=== PATIENT | male | born 1965 | race Caucasian/White ===

== ENCOUNTER 2020-01-25 14:02 | Outpatient (RCR) | payer MEDICAID, SELFPAY | END 2020-02-03 23:59 | disposition home or self-care (01) | LOC: SPT 14:02 | PROVIDERS: Family Provider Family Medicine; PCP Family Medicine; Referring Provider Specialist; Visit Provider Specialist | DX: G89.29 Other chronic pain (principal); M54.2 Cervicalgia; M79.601 Pain in right arm; M79.602 Pain in left arm | CPT/HCPCS: 97110; 97161 ==

== ENCOUNTER 2020-02-04 06:00 | Outpatient (RCR) | payer MEDICAID, SELFPAY | END 2020-03-05 23:59 | disposition home or self-care (01) | LOC: SPT 06:00 | PROVIDERS: PCP Family Medicine; Referring Provider Specialist; Visit Provider Specialist | DX: G89.29 Other chronic pain (principal); M54.2 Cervicalgia; M79.601 Pain in right arm; M79.602 Pain in left arm | CPT/HCPCS: 97110 ==

== ENCOUNTER → 2020-05-29 10:34 | Outpatient (BNVA) | payer MEDICAID, SELFPAY | PROVIDERS: PCP Family Medicine; Visit Provider Licensed Practical Nurse | DX: Z98.1 Arthrodesis status (principal); M50.13 Cervical disc disorder with radiculopathy, cervicothoracic region; M79.641 Pain in right hand; M79.642 Pain in left hand; F17.210 Nicotine dependence, cigarettes, uncomplicated | CPT/HCPCS: 99213 ==

== ENCOUNTER 2020-06-09 10:51 | Outpatient (CLI) | payer MEDICAID, SELFPAY ==
--- NOTE | 2020-06-09 11:00 | CT_ITS ---
WS: [id number] CT CERVICAL SPINE TECHNIQUE: Noncontrast CT of the cervical spine with coronal and sagittal reformatted images. CLINICAL INFORMATION: Exacerbation of neck pain COMPARISON: DLP: 1240.[address] scans at [facility] use at least one of these dose optimization techniques: automat ed exposure control; mA and/or kV adjustment per patient size (includes targeted exams where dose is matched to clinical indication); or iterative reconstruction. FINDINGS: Straightening of the normal cervical lordosis. Postoperative changes posterior cervical fusion C2- C6 . Hardware appears intact. Segmentation anomaly C2-3. Alignment is unchanged from previous. Hardware appears stable. C2-C3: Congenital segmentation anomaly. Mild left and no significant right foraminal narrowing. C3-C4: Decompressive laminectomy defects. Mild to moderate bilateral bony foraminal narrowing. Spinal canal is patent. C4-C5: Disc osteophytic ridging. Moderate right greater than left bony foraminal narrowing. Spinal ca nal is patent. Moderate facet arthropathy. C5-C6: Right pericentral disc osteophyte protrusion. Mild central canal stenosis. Slight contact of t he cervical cord. Moderate right greater than left bony foraminal narrowing. Moderate facet arthropat hy. Laminectomy defects. C6-C7: Disc osteophyte ridging. Tiny right pericentral protrusion. Mild central canal stenosis. Moder ate right and mild to moderate left bony foraminal narrowing. C7-T1: Disc osteophytic ridging. Tiny central protrusion. Spinal canal is patent. Mild bilateral fora marian narrowing. Overall no significant changes since . . CT/CT cervical spin wo con* [id number] IMPRESSION: 1. Straightening of the normal cervical lordosis with dorsal justina and screw fix ation C2-C6 with decompressive laminectomy defects stable from previous. 2. Dorsal fixation hardware is intact. No evidence of hardware loosening. 3. Small right pericentral disc osteophyte protrusion C6-C7 with mild central canal stenosis and slight contact of the right cervical cord unchanged. Moderat e right C6-C7 bony foraminal narrowing. 4. Tiny central protrusion C7-T1 with slight effacement of the ventral thecal sac unchanged. Moderate bony foraminal narrowing worse at right C4-C5, right C5 -C6, and right C6-C7.
== END 2020-06-09 10:52 | disposition home or self-care (01) ==
PROVIDERS: PCP Family Medicine; Visit Provider Licensed Practical Nurse
DX: M50.23 Other cervical disc displacement, cervicothoracic region (principal); M25.78 Osteophyte, vertebrae
CPT/HCPCS: 72125

== ENCOUNTER → 2020-06-20 13:30 | Outpatient (BNVA) | payer MEDICAID, SELFPAY | PROVIDERS: PCP Family Medicine; Visit Provider Licensed Practical Nurse | DX: M50.13 Cervical disc disorder with radiculopathy, cervicothoracic region (principal); Z98.1 Arthrodesis status; M79.641 Pain in right hand; M79.642 Pain in left hand; F17.210 Nicotine dependence, cigarettes, uncomplicated | CPT/HCPCS: 99213 ==

== ENCOUNTER → 2021-05-09 13:35 | Outpatient (BNVA) | payer MEDICAID, SELFPAY | PROVIDERS: PCP Family Medicine; Visit Provider Specialist | DX: M43.6 Torticollis (principal); M54.2 Cervicalgia; R20.0 Anesthesia of skin; R20.2 Paresthesia of skin; M79.643 Pain in unspecified hand; Z98.890 Other specified postprocedural states; Z71.89 Other specified counseling; F17.200 Nicotine dependence, unspecified, uncomplicated | CPT/HCPCS: 99214; 99215 ==

== ENCOUNTER → 2021-05-24 14:23 | Outpatient (BNVA) | payer MEDICAID, SELFPAY | PROVIDERS: PCP Family Medicine; Visit Provider Specialist | DX: G24.3 Spasmodic torticollis (principal); M50.13 Cervical disc disorder with radiculopathy, cervicothoracic region; R29.898 Other symptoms and signs involving the musculoskeletal system; Z71.89 Other specified counseling; F17.200 Nicotine dependence, unspecified, uncomplicated | CPT/HCPCS: 64616; 99214; J0585 ==

== ENCOUNTER 2021-05-31 12:45 | Outpatient (CLI) | payer MEDICAID, SELFPAY ==
--- NOTE | 2021-05-31 13:00 | XR_ITS ---
WS: [id number] Exam: XR hand RT min 3V* [id number] Date/Time of Exam: 05/31/2021 12:53 PM Reason For Exam: M79.643 - Pain in unspecified hand No acute fracture or dislocation. There is degenerative change at the MP joint of the third finger. S ubcortical cyst formation in the head of the third metacarpal and the base of the proximal phalanx of the third finger. Also subcortical cyst formation in several carpal bones. No soft tissue foreign vick dies. XR/XR hand RT min 3V* [id number] IMPRESSION: 1. Degenerative change at the MP joint of the third finger as well as the sever al carpal bones. See above discussion. 2. No fracture or dislocation.
--- NOTE | 2021-05-31 13:15 | XR_ITS ---
WS: [id number] Exam: XR hand LT min 3V* [id number] Date/Time of Exam: 05/31/2021 12:53 PM Reason For Exam: M79.643 - Pain in unspecified hand No acute fracture or dislocation. There is moderately advanced degenerative change at the MP joint of the third finger. Extensive subcortical cyst formation in the head of the third metacarpal and the b ase of the proximal phalanx of the third finger. There may be early osteonecrosis of the head of the third metacarpal. Osteophyte formation along the head of the third metacarpal. There are subcortical cysts noted in the lunate and scaphoid as well as the capitate. Mild degenerative change at the CMC j oint of the thumb. No soft tissue foreign bodies. XR/XR hand LT min 3V* [id number] IMPRESSION: 1. Advanced degenerative change at the MP joint of the third finger. There may be early osteonecrosis of the head of the third metacarpal. 2. Additional degenerative changes of the hand and wrist as noted above. 3. No acute fracture.
== END 2021-05-31 12:46 | disposition home or self-care (01) ==
PROVIDERS: PCP Family Medicine; Visit Provider Specialist
DX: M79.642 Pain in left hand (principal); M79.641 Pain in right hand
CPT/HCPCS: 73130

== ENCOUNTER → 2021-06-12 11:42 | Outpatient (BNVA) | payer MEDICAID, SELFPAY | PROVIDERS: PCP Family Medicine; Visit Provider Specialist | DX: G56.03 Carpal tunnel syndrome, bilateral upper limbs (principal); G56.21 Lesion of ulnar nerve, right upper limb; F17.200 Nicotine dependence, unspecified, uncomplicated | CPT/HCPCS: 95910 ==

== ENCOUNTER → 2021-08-16 09:42 | Outpatient (BNVA) | payer MEDICAID, SELFPAY | PROVIDERS: PCP Family Medicine; Visit Provider Family Medicine | DX: Z20.822 Contact with and (suspected) exposure to COVID-19 (principal); R68.89 Other general symptoms and signs | CPT/HCPCS: 80053; 85025; 87400; 87635 ==

== ENCOUNTER → 2021-09-27 13:39 | Outpatient (BNVA) | payer MEDICAID, SELFPAY | PROVIDERS: PCP Family Medicine; Visit Provider Specialist | DX: G24.3 Spasmodic torticollis (principal) | CPT/HCPCS: 64616; J0585 ==

== ENCOUNTER → 2021-10-16 08:34 | Outpatient (BNVA) | payer MEDICAID, SELFPAY | PROVIDERS: PCP Family Medicine; Visit Provider Internal Medicine Rheumatology | DX: M15.9 Polyosteoarthritis, unspecified (principal); Z79.899 Other long term (current) drug therapy; Z11.59 Encounter for screening for other viral diseases; Z11.1 Encounter for screening for respiratory tuberculosis; G56.21 Lesion of ulnar nerve, right upper limb; G56.03 Carpal tunnel syndrome, bilateral upper limbs; G24.3 Spasmodic torticollis; Z71.85 Encounter for immunization safety counseling; F17.210 Nicotine dependence, cigarettes, uncomplicated; F17.290 Nicotine dependence, other tobacco product, uncomplicated | CPT/HCPCS: 99204 ==

== ENCOUNTER 2021-10-16 11:46 | Outpatient (CLI) | payer MEDICAID, SELFPAY ==
[2021-10-16 12:54] LABS: Erythrocyte Sedimentation Rate 4 mm/hr (0-10)
[2021-10-16 13:14] LABS: C Reactive Protein 0.8 mg/L (0.0-4.9); Ferritin 129 ng/mL (30-400); Iron 58 ug/dL (59-158); Percent Saturation 21.4 % (20-50); Total Iron Binding Capacity 270 mcg/dl; Unsaturated Iron Binding 212 ug/dL (112-347)
[2021-10-16 13:30] LABS: 25 Hydroxy Vitamin D 11 ng/mL (30-100)
[2021-10-16 14:10] LABS: Hepatitis B Core AB, Total Non-Reactive (Nonreactive); Hepatitis C Virus Antibody Non-Reactive (Nonreactive)
[2021-10-16 14:31] LABS: Hepatitis B Surface Antigen Non-Reactive (Nonreactive)
[2021-10-18 13:47] LABS: Quantiferon Mitogen >10.00 IU/mL; Quantiferon Nil 0.02 IU/mL; Quantiferon TB Gold NEGATIVE (NEGATIVE)
[2021-10-18 14:02] LABS: Cyclic Citrullinated Peptide <16 UNITS
[2021-10-18 15:47] LABS: Anti-Nuclear Antibody Screen NEGATIVE (NEGATIVE)
== END 2021-10-16 11:47 | disposition home or self-care (01) ==
LOC: LAB 11:51
PROVIDERS: PCP Family Medicine; Visit Provider Internal Medicine Rheumatology
DX: M19.90 Unspecified osteoarthritis, unspecified site (principal); Z79.899 Other long term (current) drug therapy; Z11.59 Encounter for screening for other viral diseases; G61.9 Inflammatory polyneuropathy, unspecified; Z11.1 Encounter for screening for respiratory tuberculosis
CPT/HCPCS: 82306; 82728; 83540; 83550; 85651; 86038; 86140; 86200; 86431; 86480; 86704; 86803; 87340

== ENCOUNTER → 2022-01-10 12:50 | Outpatient (BNVA) | payer MEDICAID, SELFPAY | PROVIDERS: PCP Family Medicine; Visit Provider Specialist | DX: F41.1 Generalized anxiety disorder (principal); F40.231 Fear of injections and transfusions; F17.210 Nicotine dependence, cigarettes, uncomplicated; F17.290 Nicotine dependence, other tobacco product, uncomplicated; G24.3 Spasmodic torticollis | CPT/HCPCS: 64616; J0585 ==

== ENCOUNTER → 2022-01-25 09:59 | Outpatient (BNVA) | payer MEDICAID, SELFPAY | PROVIDERS: PCP Family Medicine; Visit Provider Internal Medicine Rheumatology | DX: M06.041 Rheumatoid arthritis without rheumatoid factor, right hand (principal); M06.042 Rheumatoid arthritis without rheumatoid factor, left hand; M11.20 Other chondrocalcinosis, unspecified site; Z79.899 Other long term (current) drug therapy; Z71.85 Encounter for immunization safety counseling | CPT/HCPCS: 99214 ==

== ENCOUNTER → 2022-04-04 13:06 | Outpatient (BNVA) | payer MEDICAID, SELFPAY | PROVIDERS: PCP Family Medicine; Visit Provider Specialist | DX: F41.1 Generalized anxiety disorder (principal); Z98.1 Arthrodesis status; G24.3 Spasmodic torticollis | CPT/HCPCS: 64616; J0585 ==

== ENCOUNTER → 2022-05-21 10:41 | Outpatient (BNVA) | payer MEDICAID, SELFPAY | PROVIDERS: PCP Family Medicine; Visit Provider Internal Medicine Rheumatology | DX: M06.041 Rheumatoid arthritis without rheumatoid factor, right hand (principal); M06.042 Rheumatoid arthritis without rheumatoid factor, left hand; Z79.899 Other long term (current) drug therapy; Z71.85 Encounter for immunization safety counseling; G56.03 Carpal tunnel syndrome, bilateral upper limbs; G56.21 Lesion of ulnar nerve, right upper limb | CPT/HCPCS: 36415; 80076; 82565; 85025; 86140; 99214 ==

== ENCOUNTER 2022-06-17 19:04 | Emergency (ER) | payer MEDICAID, SELFPAY ==
--- NOTE | 2022-06-17 19:07 | XRR_ITS ---
PROCEDURE INFORMATION: Exam: XR Right Foot Exam date and time: 06/17/2022 8:00 PM Age: 57 years old Clinical indication: Difficulty in walking and swelling, leg or foot and other: Possible spider bite; Additional info: Injury TECHNIQUE: Imaging protocol: Radiologic exam of the Right foot. Views: 3 or more views. COMPARISON: No relevant prior studies available. FINDINGS: Bones/joints: No acute or aggressive osseous lesion. Soft tissues: Apparent soft tissue swelling dorsal forefoot. No foreign body identified. XR/XR foot RT min 3V* [id number] IMPRESSION: Apparent soft tissue swelling of the dorsal forefoot. Correlate clinically.
[2022-06-17 19:11] VITALS: BP 95/57; PULSE 120; RESP 18; TEMP 36.7; O2SAT 97; BMI 19.1
[2022-06-17 19:35] VITALS: RESP 16
[2022-06-17] MEDS: ondansetron 2 mg/ML SDV 2 mL 4 MG IVP (19:35)
[2022-06-17] MEDS: fentaNYL 50 mcg/mL INJ 2mL IVP (19:35)
[2022-06-17 19:53] LABS: Basophils % 0.3 %; Eosinophils # 0.2 10^3/uL (0.0-0.8); Eosinophils % 1.5 %; Hematocrit 44.5 % (42.0-52.0); Hemoglobin 14.4 g/dL (11.7-16.6); Lymphocytes # 1.2 10^3/uL (0.8-4.8); Mean Corpuscular HGB Conc 32.4 g/dL (30.0-36.0); Mean Corpuscular Hemoglobin 30.2 pg (28.0-34.0); Mean Corpuscular Volume 93.3 fl (80-94); Mean Platelet Volume 9.1 fL (7.4-10.4); Monocytes % 8.6 %; Neutrophils # 8.61 10^3/uL (1.8-7.7); Neutrophils % 78.2 %; Nucleated Red Blood Cells % 0 %; Platelet Count 387 10^3/cmm (130-400); Red Blood Count 4.77 10^6/uL (4.1-5.3); Red Cell Distribution Width 12.7 % (12.1-15.1)
[2022-06-17 20:09] LABS: Lactate (Lactic Acid level) 2.4 mmol/L (0.5-2.2)
[2022-06-17 20:14] LABS: Alanine Aminotransferase 11 U/L (0-41); Albumin Level 3.9 g/dL (3.5-5.2); Alkaline Phosphatase 106 U/L (40-130); Aspartate Amino Transferase 15 U/L (0-40); Blood Urea Nitrogen 13 mg/dL (6-20); Calcium 9.1 mg/dL (8.5-10.5); Carbon Dioxide 26 mmol/L (22-29); Chloride 101 mmol/L (98-107); Globulin 2.8 g/dL (1.3-4.6); Glucose 124 mg/dL (65-115); Osmolality Calculated 288 mOsm/kg (285-295); Sodium 138 mmol/L (136-145); Total Bilirubin 0.3 mg/dL (0.15-1.2); Total Protein 6.7 g/dL (6.6-8.7)
[2022-06-17 20:15] LABS: Anion Gap 14.9 (5-19); Potassium 3.9 mmol/L (3.5-5.1)
--- NOTE | 2022-06-17 20:22 | W.ED.WOUNDLC ---
HPI - Wound/Laceration General: Chief Complaint: Wound/Laceration Stated Complaint: Right foot injury Time Seen by Provider: 06/17/22 20:17 History of Present Illness: 57-year-old male patient comes in today with a wound to the dorsal right foot. It is at the area of the base of the fourth toe. Patient believes it started as an insect bite over the last 2 to 3 days as it got more red and swollen. Patient denies diabetes. Patient does have chronic numbness and tingling to his feet. Patient does have a history of rheumatoid arthritis. Review of Systems Musc: Reports: extremity pain and extremity swelling Skin/Breast: Reports: new lesions PFSH ED PFSH: Medical History Bilateral hand pain Calcium pyrophosphate deposition disease (CPPD) Cervical disc disorder with radiculopathy, cervicothoracic region Generalized anxiety disorder High risk medication use Immunization counseling Inflammatory arthritis Peripheral neuropathy Seronegative rheumatoid arthritis of both hands Surgical History History of carpal tunnel release Open release of the median nerve at the right wrist, 08/23/2019, [facility] History of fusion of cervical spine C2-C3 ACDFF, [facility], 03/09/2001; C2-C6 posterior fusion/fixation, [facility], 04/01/2014 Family History Father Stroke Denies family history of Rheumatoid arthritis Diabetes Lupus Lung disease Cancer Hypertension Social History Smoking and tobacco status: current every day smoker cigarettes [ Other cigarette details: using chantix to try to quit at this time] and cigars Quit status (tobacco): has tried quititng Alcohol intake: current Alcohol intake frequency: few times a week Household members: none Marital status: Current occupational status: disabled History of recent travel: No Physical Exam Neck/C-Spine: COMMON NORMALS: full ROM Resp: COMMON NORMALS: normal respiratory effort and clear to auscultation bilaterally AUSCULTATION: clear to auscultation bilaterally Extremity: RIGHT LOWER EXTREMITY: Yes foot & digits (Draining wound to the dorsal foot at the base of the fourth digit.) Skin: NARRATIVE SKIN EXAM: Patient has a draining wound to the right foot with redness surrounding the wound. WOUNDS: Yes wounds noted drainage Course Vital Signs: Vital signs: Vital Signs Temperature 98.1 F 06/17/22 19:11 Pulse Rate 120 H 06/17/22 19:11 Respiratory Rate 18 06/17/22 19:11 Blood Pressure 95/57 06/17/22 19:11 Pulse Oximetry 97 06/17/22 19:11 Oxygen Delivery Me thod 06/17/22 19:11 MDM - Wound/Laceration Medical Decision Making Patient comes in with open draining wound with redness and swelling to the right foot. On exam we note a wound at the base of the fourth digit on the right foot. There is purulent drainage from the site. Patient also has surrounding erythema. Pulses are intact to the foot, both pedal and tibial pulses are palpated. Patient denies diabetes but does have a history of neuropathy. Differential diagnosis includes osteomyelitis, abscess, cellulitis, infected wound. X-ray notes some soft tissue swelling but no osteomyelitis or foreign body. CBC was a white blood cell count at 11,000. CMP was unremarkable. Lactate was 2.2. Reviewed exam with Dr. Fortune who recommended antibiotics and follow-up with podiatry. Case management was requested to assist with the podiatry follow-up. Reviewed plan with patient who agreed. Patient was given 750 mg of Levaquin x1 in the ER per ID. Patient will continue on oral antibiotics at home. Lab Data : 06/17/22 19:41 06/17/22 19:41 Radiology Impressions Foot X-Ray 06/17/22 19:07 IMPRESSION: Apparent soft tissue swelling of the dorsal forefoot. Correlate clinically. Laboratory Results WBC 11.0 10^3/uL (4.0-10.0) H 06/17/22 19:41 RBC 4.77 10^6/uL (4.1-5.3) 06/17/22 19:41 Hgb 14.4 g/dL (11.7-16.6) 06/17/22 19:41 Hct 44.5 % (42.0-52.0) 06/17/22 19:41 MCV 93.3 fl (80-94) 06/17/22 19:41 MCH 30.2 pg (28.0-34.0) 06/17/22 19:41 MCHC 32.4 g/dL (30.0-36.0) 06/17/22 19:41 RDW 12.7 % (12.1-15.1) 06/17/22 19:41 Plt Count 387 10^3/cmm (130-400) 06/17/22 19:41 MPV 9.1 fL (7.4-10.4) 06/17/22 19:41 Neut % (Auto) 78.2 % 06/17/22 19:41 Lymph % (Auto) 11.0 % 06/17/22 19:41 [place] % (Auto) 8.6 % 06/17/22 19:41 Eos % (Auto) 1.5 % 06/17/22 19:41 Baso % (Auto) 0.3 % 06/17/22 19:41 Neut # (Auto) 8.61 10^3/uL (1.8-7.7) H 06/17/22 19:41 Lymph # (Auto) 1.2 10^3/uL (0.8-4.8) 06/17/22 19:41 [place] # (Auto) 1.0 10^3/uL (0.2-0.9) H 06/17/22 19:41 Eos # (Auto) 0.2 10^3/uL (0.0-0.8) 06/17/22 19:41 Baso # (Auto) 0.0 10^3/uL (0.0-0.1) 06/17/22 19:41 Nucleated RBC % (auto) 0 % 06/17/22 19:41 Nucleated RBCs # 0.0 /100WBC 06/17/22 19:41 Sodium 138 mmol/L (136-145) 06/17/22 19:41 Potassium 3.9 mmol/L (3.5-5.1) 06/17/22 19:41 Chloride 101 mmol/L (98-107) 06/17/22 19:41 Carbon Dioxide 26 mmol/L (22-29) 06/17/22 19:41 Anion Gap 14.9 (5-19) 06/17/22 19:41 BUN 13 mg/dL (6-20) 06/17/22 19:41 Creatinine 0.8 mg/dL (0.7-1.2) 06/17/22 19:41 GFR Calculation 100.0 mL/min (90-130) 06/17/22 19:41 Glucose 124 mg/dL (65-115) H 06/17/22 19:41 Calculated Osmolality 288 mOsm/kg (285-295) 06/17/22 19:41 Lactate 2.4 mmol/L (0.5-2.2) H 06/17/22 19:41 Calcium 9.1 mg/dL (8.5-10.5) 06/17/22 19:41 Total Bilirubin 0.3 mg/dL (0.15-1.2) 06/17/22 19:41 AST 15 U/L (0-40) 06/17/22 19:41 ALT 11 U/L (0-41) 06/17/22 19:41 Alkaline Phosphatase 106 U/L (40-130) 06/17/22 19:41 Total Protein 6.7 g/dL (6.6-8.7) 06/17/22 19:41 Albumin 3.9 g/dL (3.5-5.2) 06/17/22 19:41 Globulin 2.8 g/dL (1.3-4.6) 06/17/22 19:41 Discharge Plan Discharge Patient Disposition: Home Clinical Impression: Infected wound of left foot due to nonvenomous insect bite Condition: Stable Prescriptions: New levofloxacin 500 mg tablet 500 mg PO DAILY 10 Days Qty: 10 0RF No Action folic acid 1 mg tablet 1 mg PO DAILY Qty: 90 3RF hydrocodone-acetaminophen 10-325 mg tablet 1 tab PO BID PRN (Reason: pain) 30 Days Qty: 60 0RF leflunomide 20 mg tablet 20 mg PO DAILY Qty: 30 3RF ergocalciferol (vitamin D2) [Vitamin D2] 1,250 mcg (50,000 unit) capsule 1,250 mcg PO DAILY Qty: 15 0RF ibuprofen 600 mg tablet See Rx Instructions .ROUTE .COMPLEX Qty: 75 7RF Dose Instruction: TAKE 1 TABLET BY MOUTH THREE TIMES DAILY NEEDED FOR PAIN Rx Instructions: TAKE 1 TABLET BY MOUTH THREE TIMES DAILY NEEDED FOR PAIN gabapentin 300 mg capsule See Rx Instructions .ROUTE .COMPLEX Qty: 60 6RF Dose Instruction: TAKE 1 CAPSULE BY MOUTH TWO TIMES DAILY FOR 30 DAYS FOR CHRONIC NERVE PAIN Rx Instructions: TAKE 1 CAPSULE BY MOUTH TWO TIMES DAILY FOR 30 DAYS FOR CHRONIC NERVE PAIN omeprazole 40 mg capsule,delayed release(DR/EC) See Rx Instructions .ROUTE .COMPLEX Qty: 90 1RF Dose Instruction: TAKE 1 CAPSULE BY MOUTH EVERY DAY ON EMPTY STOMACH 30 MINUTES BEFORE BREAKFAST Rx Instructions: TAKE 1 CAPSULE BY MOUTH EVERY DAY ON EMPTY STOMACH 30 MINUTES BEFORE BREAKFAST diazepam 5 mg tablet 5 mg PO TID PRN (Reason: anxiety) 30 Days Qty: 65 4RF Discharge Orders: Discharge ED (Routine); Ordered 06/17/22 Ordered By: Aravind Calzada Referrals: Colby Sen MD [Primary Care Provider] - Discharge Diet: Usual diet Discharge Activity: Increase activity as tolerated Patient Instructions: Wound Infection (ED) Activity Restrictions/Additional Instructions: Clean twice a day with mild soap and water. Elevate foot is much as possible. Take antibiotics as directed. Case management will contact you regarding follow-up appointment with podiatry for further treatment and evaluation. Return to ER for high fever greater than 100.4, nausea vomiting, inability to hold fluids down, or new concerns. Coding Level of Care Code ED Personal Care Assistant for Chg Fwd Exam Expanded Problem Focused
[2022-06-17] MEDS: levoFLOXacin 500 mg Tablet PO (21:07)
[2022-06-17 21:13] VITALS: PULSE 90; RESP 17; O2SAT 97
--- NOTE | 2022-06-18 09:50 | DCPLANNER ---
Addendum entered by Елена Stanley 06/28/22 08:38: Patient had an appointment with ortho - patient did attend appointment. Addendum entered by Елена Stanley 06/19/22 15:27: Patient has a follow up appointment for patient with ortho for , June 20, 2022 at 9:[address] Delcid at ortho. Clinic will call patient with appointment information. Original Note: consulting services manager had message to schedule a follow up appointment for patient with ortho. consulting services manager sent patients information to the front office staff at ortho. Patients information will be printed and reviewed. Clinic will call patient with appointment information.
== END 2022-06-17 20:45 | disposition home or self-care (01) ==
PROVIDERS: Emergency Medicine; Emergency Provider Nurse Practitioner Family; PCP Family Medicine
DX: S90.862A Insect bite (nonvenomous), left foot, initial encounter (principal); L08.9 Local infection of the skin and subcutaneous tissue, unspecified; W57.XXXA Bitten or stung by nonvenomous insect and other nonvenomous arthropods, initial encounter; F17.210 Nicotine dependence, cigarettes, uncomplicated
CPT/HCPCS: 73630; 80053; 83605; 85025; 87040; 96374; 96375; 99284; J2405; J3010

== ENCOUNTER → 2022-06-20 09:57 | Outpatient (BNVA) | payer MEDICAID, SELFPAY | PROVIDERS: PCP Family Medicine; Referring Provider Nurse Practitioner Family; Visit Provider Podiatrist Foot & Ankle Surgery | DX: M00.9 Pyogenic arthritis, unspecified (principal); L03.115 Cellulitis of right lower limb; L97.511 Non-pressure chronic ulcer of other part of right foot limited to breakdown of skin; W57.XXXA Bitten or stung by nonvenomous insect and other nonvenomous arthropods, initial encounter | CPT/HCPCS: 73630; 99204; 99205 ==

== ENCOUNTER 2022-06-20 13:55 | Inpatient (IN) | payer MEDICAID, SELFPAY ==
[2022-06-20] VITALS (7 sets, daily range): BP systolic 94–149; BP diastolic 61–89; PULSE 81–117; RESP 16–18; TEMP 36.5–36.6; O2SAT 96–99; BMI 19.8; BMI 20.3
--- NOTE | 2022-06-20 14:12 | W.ED.SKABFB ---
HPI - Skin/Abscess/Foreign Bdy General: Chief complaint: Skin/Abscess/Foreign Body Stated complaint: Right foot spider bite Time Seen by Provider: 06/20/22 14:05 History of Present Illness: Patient is a 57-year-old male that comes to the ED with a wound on right foot. Patient has been seen here in the ED back on June 17 for same complaint. His wound has not improved on outpatient oral antibiotic treatment. He endorses having red streaking at the top of his right foot and his ankle. Increased drainage from the wound. He rates his pain currently a 5 out of 10. Denies any fevers. He saw Dr. Delcid the sales agent [employer] today June 20 and was sent here to the ED to be admitted. Dr. Delcid is going to take patient to the OR tomorrow and Dr. Delcid contacted the hospitalist Dr. Dee and told her about patient case and she agreed to have patient admitted. Associated symptoms: Deny chills, fever(s), nausea or vomiting Review of Systems Const: Denies: fever(s), chills or fatigue Eyes: Denies: change in vision or eye discomfort ENMT: Denies: throat pain, odynophagia, nasal discharge or nasal congestion Card: Denies: chest pain, palpitations, edema, swelling of feet/ankles, dyspnea on exertion or orthopnea Resp: Denies: dyspnea, productive cough or non-productive cough GI: Denies: abdominal pain, nausea, vomiting, diarrhea, constipation or hematochezia : Denies: flank pain, difficulty urinating, dysuria or hematuria Musc: Reports: extremity pain (Right foot) and extremity swelling (Right foot); Denies: neck pain or back pain Skin/Breast: Reports: new lesions (Worsening wound on right fourth toe.); Denies: rash Neuro: Denies: headache(s), numbness in extremities or weakness in extremities [facility] ED PFSH: Medical History Bilateral hand pain Calcium pyrophosphate deposition disease (CPPD) Cervical disc disorder with radiculopathy, cervicothoracic region Generalized anxiety disorder High risk medication use Immunization counseling Inflammatory arthritis Peripheral neuropathy Seronegative rheumatoid arthritis of both hands Surgical History History of carpal tunnel release Open release of the median nerve at the right wrist, 08/23/2019, [facility] History of fusion of cervical spine C2-C3 ACDFF, [facility], 03/09/2001; C2-C6 posterior fusion/fixation, [facility], 04/01/2014 Family History Father Stroke Denies family history of Rheumatoid arthritis Diabetes Lupus Lung disease Cancer Hypertension Social History Smoking and tobacco status: current every day smoker cigarettes [ Other cigarette details: using chantix to try to quit at this time] and cigars Quit status (tobacco): has tried quititng Alcohol intake: current Alcohol intake frequency: few times a week Household members: none Marital status: Current occupational status: disabled History of recent travel: No Physical Exam Const: COMMON NORMALS: patient oriented x3 and alert GENERAL APPEARANCE: cooperative HENMT: COMMON NORMALS: normocephalic HEAD & SCALP: normocephalic MOUTH: Normal oral and palatal mucosa present THROAT: posterior oropharynx normal and uvula midline Neck/C-Spine: COMMON NORMALS: supple GENERAL: Yes normal visual inspection Resp: COMMON NORMALS: normal respiratory effort, No retractions, No use of accessory muscles and clear to auscultation bilaterally AUSCULTATION: clear to auscultation bilaterally Cardio: COMMON NORMALS: regular rate, regular rhythm, S1 normal heart sound present, S2 normal heart sound present, No gallops present (Cardio), No clicks present (Cardio), No murmurs present (Cardio) and Peripheral pulses 2+ throughout RATE: regular rate RHYTHM: regular rhythm HEART SOUNDS: S1 normal heart sound present and S2 normal heart sound present PERIPHERAL PULSES: Peripheral pulses 2+ throughout GI: COMMON NORMALS: Normal to inspection, nondistended, normoactive bowel sounds present, Soft to palpation, non-tender and no masses PALPATION: Yes Soft to palpation : COMMON NORMALS: Yes no CVA tenderness BLADDER/KIDNEY EXAM: Yes no CVA tenderness Back/Pelvis: COMMON NORMALS: no CVA tenderness Extremity: NARRATIVE EXTREMITY EXAM: Right foot?patient has erythema, warmth and swelling throughout midfoot and streaking that goes up the midfoot and into the ankle. Wound on right fourth toe is located at the proximal interphalangeal joint level. Macerated and devitalized base with some purulent drainage. Tenderness to palpation. Neuro: COMMON NORMALS: patient oriented x3 SENSORIUM/ORIENTATION: Yes alert GAIT: Yes Normal gait present Skin: GENERAL SKIN EXAM: dry skin Course Consultations: Consultation #1: I contacted Dr. Dee and she came down here to the ED and I spoke with her about patient case. She was familiar with patient and his case after speaking with Dr. Delcid earlier today. She wanted me to start patient on IV Vanco and Zosyn and she will be placing the orders to have patient admitted to the hospital. Time: 14:44 Vital Signs: Vital signs: Vital Signs Temperature 97.7 F 06/20/22 19:02 Pulse Rate 91 06/20/22 19:02 Respiratory Rate 18 06/20/22 19:02 Blood Pressure 130/82 06/20/22 19:02 Pulse Oximetry 97 06/20/22 19:02 Oxygen Delivery Me thod 06/20/22 19:02 MDM - Skin/Abscess/Foreign Bdy Medicial Decision Making Patient is a 57-year-old male who comes to the ED with worsening right foot wound on fourth toe. Patient was seen here in the ED back on June 17 and given IV antibiotics and discharged home with outpatient oral antibiotic treatment. Wound has continued to get worse and he has erythema, warmth and swelling of right foot with some streaking up right foot as well. He was seen by Dr. Delcid today and he contacted Dr. Dee the hospitalist and is going to have patient directly admitted, started on IV antibiotic and Dr. Delcid can take patient to the OR tomorrow morning. They did not have any beds available so patient was told to come to the ED first and then they will be admitted. Vitals are stable. Labs were ordered. I contacted Dr. Dee and she came down here to the ED to see patient. She told me to start patient on IV Vanco and Zosyn. Patient will be admitted and Dr. Dee will be placing the admitting orders. Lab Data : 06/20/22 14:48 06/20/22 14:48 Radiology Impressions Chest X-Ray 06/20/22 15:22 Impression: Hyperinflation. Laboratory Results WBC 7.9 10^3/uL (4.0-10.0) 06/20/22 14:48 RBC 4.56 10^6/uL (4.1-5.3) 06/20/22 14:48 Hgb 13.7 g/dL (11.7-16.6) 06/20/22 14:48 Hct 42.2 % (42.0-52.0) 06/20/22 14:48 MCV 92.5 fl (80-94) 06/20/22 14:48 MCH 30.0 pg (28.0-34.0) 06/20/22 14:48 MCHC 32.5 g/dL (30.0-36.0) 06/20/22 14:48 RDW 12.7 % (12.1-15.1) 06/20/22 14:48 Plt Count 389 10^3/cmm (130-400) 06/20/22 14:48 MPV 8.9 fL (7.4-10.4) 06/20/22 14:48 Neut % (Auto) 62.9 % 06/20/22 14:48 Lymph % (Auto) 20.0 % 06/20/22 14:48 [place] % (Auto) 12.1 % 06/20/22 14:48 Eos % (Auto) 4.0 % 06/20/22 14:48 Baso % (Auto) 0.5 % 06/20/22 14:48 Neut # (Auto) 4.99 10^3/uL (1.8-7.7) 06/20/22 14:48 Lymph # (Auto) 1.6 10^3/uL (0.8-4.8) 06/20/22 14:48 [place] # (Auto) 1.0 10^3/uL (0.2-0.9) H 06/20/22 14:48 Eos # (Auto) 0.3 10^3/uL (0.0-0.8) 06/20/22 14:48 Baso # (Auto) 0.0 10^3/uL (0.0-0.1) 06/20/22 14:48 Nucleated RBC % (auto) 0 % 06/20/22 14:48 Nucleated RBCs # 0.0 /100WBC 06/20/22 14:48 ESR Cancelled 06/20/22 14:48 Sodium 140 mmol/L (136-145) 06/20/22 14:48 Potassium 4.1 mmol/L (3.5-5.1) 06/20/22 14:48 Chloride 102 mmol/L (98-107) 06/20/22 14:48 Carbon Dioxide 26 mmol/L (22-29) 06/20/22 14:48 Anion Gap 16.1 (5-19) 06/20/22 14:48 BUN 15 mg/dL (6-20) 06/20/22 14:48 Creatinine 0.9 mg/dL (0.7-1.2) 06/20/22 14:48 GFR Calculation 87.3 mL/min (90-130) L 06/20/22 14:48 Glucose 109 mg/dL (65-115) 06/20/22 14:48 Estimat Average Glucose 131 06/20/22 14:48 Hemoglobin A1c 6.2 % (4.0-6.0) H 06/20/22 14:48 Calculated Osmolality 291 mOsm/kg (285-295) 06/20/22 14:48 Lactic Acid 2.4 mmol/L (0.5-2.2) H 06/20/22 14:48 Calcium 10.1 mg/dL (8.5-10.5) 06/20/22 14:48 Total Bilirubin 0.2 mg/dL (0.15-1.2) 06/20/22 14:48 AST 18 U/L (0-40) 06/20/22 14:48 ALT 12 U/L (0-41) 06/20/22 14:48 Alkaline Phosphatase 101 U/L (40-130) 06/20/22 14:48 C-Reactive Protein 22.3 mg/L (0.0-4.9) H 06/20/22 14:48 Total Protein 6.8 g/dL (6.6-8.7) 06/20/22 14:48 Albumin 4.0 g/dL (3.5-5.2) 06/20/22 14:48 Globulin 2.8 g/dL (1.3-4.6) 06/20/22 14:48 Triglycerides 147 mg/dL (0-150) 06/20/22 14:48 Cholesterol 147 mg/dL (0-200) 06/20/22 14:48 LDL Cholesterol, Calc 68 mg/dL (50-129) 06/20/22 14:48 HDL Cholesterol 50 mg/dL (60-100) L 06/20/22 14:48 LDL/HDL Ratio 1.36 RATIO (0.00-3.22) 06/20/22 14:48 Cholesterol/HDL Ratio 2.94 mg/dL (1.0-5.00) 06/20/22 14:48 Procalcitonin 0.06 ng/mL (0-0.5) 06/20/22 14:48 Ethyl Alcohol < 10 mg/dL (0-10) 06/20/22 14:48 Discharge Plan Discharge Patient Disposition: Admitted As Inpatient Admit Provider: Josi Dee Clinical Impression: Cellulitis of right foot, Septic arthritis of interphalangeal joint of toe of right foot Condition: Stable Coding Level of Care Code ED Dowel Pin Man for Chris Fwnael Exam Comprehensive
[2022-06-20 14:55] LABS: Basophils % 0.5 %; Eosinophils # 0.3 10^3/uL (0.0-0.8); Hematocrit 42.2 % (42.0-52.0); Hemoglobin 13.7 g/dL (11.7-16.6); Lymphocytes # 1.6 10^3/uL (0.8-4.8); Mean Corpuscular HGB Conc 32.5 g/dL (30.0-36.0); Mean Corpuscular Volume 92.5 fl (80-94); Mean Platelet Volume 8.9 fL (7.4-10.4); Monocytes % 12.1 %; Neutrophils # 4.99 10^3/uL (1.8-7.7); Neutrophils % 62.9 %; Nucleated Red Blood Cells % 0 %; Platelet Count 389 10^3/cmm (130-400); Red Blood Count 4.56 10^6/uL (4.1-5.3); Red Cell Distribution Width 12.7 % (12.1-15.1); White Blood Count 7.9 10^3/uL (4.0-10.0)
[2022-06-20 15:12] LABS: Lactic Sepsis W/Reflex 2.4 mmol/L (0.5-2.2)
[2022-06-20 15:13] LABS: Alanine Aminotransferase 12 U/L (0-41); Alkaline Phosphatase 101 U/L (40-130); Anion Gap 16.1 (5-19); Aspartate Amino Transferase 18 U/L (0-40); Blood Urea Nitrogen 15 mg/dL (6-20); C Reactive Protein 22.3 mg/L (0.0-4.9); Calcium 10.1 mg/dL (8.5-10.5); Carbon Dioxide 26 mmol/L (22-29); Chloride 102 mmol/L (98-107); Globulin 2.8 g/dL (1.3-4.6); Glomerular Filtration Rate 87.3 mL/min (90-130); Glucose 109 mg/dL (65-115); Osmolality Calculated 291 mOsm/kg (285-295); Potassium 4.1 mmol/L (3.5-5.1); Sodium 140 mmol/L (136-145); Total Bilirubin 0.2 mg/dL (0.15-1.2); Total Protein 6.8 g/dL (6.6-8.7)
--- NOTE | 2022-06-20 15:22 | XR_ITS ---
WS: [id number] Portable AP upright chest, 06/20/2022 Clinical Data: baseline, COPD Comparison: None. Findings: No nodules, masses or effusions are seen. The heart is normal. The pulmonary vascularity is not increased. No pneumonia or pneumothorax is seen. The diaphragms are flattened. The patient has h ad a posterior cervical fusion. XR/XR chest 1V portable [id number] Impression: Hyperinflation.
--- NOTE | 2022-06-20 15:27 | P.HP_ITS ---
Providers/Chief Complaint Primary Care Provider: Colby Sen MD Chief Complaint: Right foot spider bite History of Present Illness Jose King is a 57 year old male with past medical history of CPPD, generalized anxiety disorder, inflammatory arthritis, peripheral neuropathy, seronegative rheumatoid arthritis of both hands presented to the hospital as a direct admission from podiatry Dr. Delcid's clinic. Patient had a bug bite on his right foot fourth toe about 1 to 2 weeks ago. He developed a fever felt very weak and sick and developed a wound on the right fourth toe that was draining and severely painful which kept getting worse. Patient was seen at the wound clinic and sent to the ER on 06/17. He was placed on Levaquin 500 for 10 days. Eventually he was seen by podiatry on 06/20 for worsening cellulitis of right foot. Now having redness streaking across top of right foot towards ankle and increasing drainage from wound and overall worsening appearance for him and his 's report. Pain 3 out of 10. Also reporting some nausea, fever, chills, shortness of breath. From there patient was sent to ER for admission for IV antibiotics and to be taken to the OR for debridement in a.m. When I evaluated patient at bedside he seemed to be somewhat of a poor historian. He denied any nausea vomiting shortness of breath at this time however did report some subjective fever and chills. He states he is not sure what bit him. On arrival lactic acid 2.4, blood pressure 94/61, pulse 117. CT right foot with contrast ordered. Patient given 30 mill per KG normal saline for sepsis bolus. Also placed on normal saline 125 cc/h. CRP 22. ESR pending. Blood cultures ordered. Urine drug screen positive for amphetamines, opioids, benzodiazepines, marijuana. Dr. Delcid consulted for debridement. Medications/Allergies Home Medications Medication Instructions Recorded Confirmed Last Taken Type ergocalciferol (vitamin D2) 1,250 1,250 mcg PO DAILY #15 caps 10/29/21 06/20/22 Unknown Rx mcg (50,000 unit) capsule (Vitamin D2) ibuprofen 600 mg tablet See Rx Instructions .Route 01/17/22 06/20/22 Unknown Rx .COMPLEX #75 tabs folic acid 1 mg tablet 1 mg PO DAILY #90 tabs 01/25/22 06/20/22 Unknown Rx gabapentin 300 mg capsule See Rx Instructions .Route 04/29/22 06/20/22 Unknown Rx .COMPLEX #60 caps omeprazole 40 mg capsule,delayed See Rx Instructions .Route 04/29/22 06/20/22 Unknown Rx release .COMPLEX #90 caps leflunomide 20 mg tablet 20 mg PO DAILY #30 tabs 05/21/22 06/20/22 Unknown Rx hydrocodone 10 mg-acetaminophen 1 tab PO BID PRN pain 30 days #60 05/27/22 06/20/22 Unknown Rx 325 mg tablet tabs diazepam 5 mg tablet 5 mg PO TID PRN anxiety 30 days 05/29/22 06/20/22 Unknown Rx #65 tabs levofloxacin 500 mg tablet 500 mg PO DAILY 10 days #10 tabs 06/17/22 06/20/22 Un known Rx Allergies Allergy/AdvReac Type Severity Reaction Status Date / Time codeine Allergy nausea Verified 06/20/22 09:27 PFSH Acute PFSH: Medical History Bilateral hand pain Calcium pyrophosphate deposition disease (CPPD) Cervical disc disorder with radiculopathy, cervicothoracic region Generalized anxiety disorder High risk medication use Immunization counseling Inflammatory arthritis Peripheral neuropathy Seronegative rheumatoid arthritis of both hands Surgical History History of carpal tunnel release Open release of the median nerve at the right wrist, 08/23/2019, [facility] History of fusion of cervical spine C2-C3 ACDFF, [facility], 03/09/2001; C2-C6 posterior fusion/fixation, [facility], 04/01/2014 Family History Father Stroke Denies family history of Rheumatoid arthritis Diabetes Lupus Lung disease Cancer Hypertension Social History Smoking and tobacco status: current every day smoker cigarettes [ Other cigaret te details: using chantix to try to quit at this time] and cigars Quit status (tobacco): has tried quititng Alcohol intake: current Alcohol intake frequency: few times a week Household members: none Marital status: Current occupational status: disabled History of recent travel: No Vitals/I&O/Wt Last Vital Signs Temp 97.7 F 06/20/22 14:04 Pulse 117 H 06/20/22 14:04 Resp 18 06/20/22 14:04 BP 94/61 06/20/22 14:04 Pulse Ox 96 06/20/22 14:04 O2 Del Method 06/20/22 14:04 Weight last 48 hrs Weight 58.967 kg Physical Exam Narrative: General: Alert oriented x3, patient seen sitting up in recliner in a vertical flow. Cachectic male, some temporal wasting noted HEENT: Normocephalic, atraumatic, EOMI, breathing normally on room air Cardio: Regular rate rhythm, normal S1-S2, Respiratory: Diminished air entry bilaterally, very mild wheezing at bases GI: Abdomen soft, nontender, nondistended, bowel sounds + Behavior: Appropriate and cooperative Extremities: Swollen right foot with erythema, edema all the way up to toward the fifth toe with redness extending up to the ankle. No soft tissue crepitus. No palpable mass. Right toe has a necrotic area. Data : 06/21/22 04:22 06/21/22 04:22 A&P Assessment and plan (1) Septic arthritis of interphalangeal joint of toe of right foot: Status: Acute (2) Cellulitis of right foot: Status: Acute (3) Infected wound of left foot due to nonvenomous insect bite: Status: Acute (4) Seronegative rheumatoid arthritis of both hands: Status: Acute (5) Peripheral neuropathy: Status: Acute Qualifiers: Peripheral neuropathy type: inflammatory polyneuropathy, unspecified Qualified Code(s): G61.9 - Inflammatory polyneuropathy, unspecified (6) Generalized anxiety disorder: Status: Acute Plan #Sepsis secondary to right foot cellulitis with necrotic area on fourth toe secondary to insect bite (hypotension, tachycardia, lactic acidosis) #Bilateral rheumatoid arthritis #Septic arthritis of right foot #Amphetamine abuse #Anxiety #Peripheral neuropathy #Nicotine dependence, attempting to quit #Social alcohol drinker #Immunocompromised status -Failed outpatient therapy. ? Continue gabapentin, diazepam 3 times daily as needed, hydrocodone acetaminophen 10/325, methotrexate, omeprazole, Zofran. His medications are as per list from previous visits. Patient's home medications need to be re- confirmed at that point I will order them. ? Start IV vancomycin, IV Zosyn ? DuoNeb x1 now and every 4 hours as needed ? Check ESR, CRP, CT right foot with contrast, blood cultures, wound cultures intraoperatively ? Thiamine, folic acid ? Placed on CIWA protocol ? Received 30 mill per KG normal saline bolus in ER ? Lactic acid elevated on admission. Recheck in 6 hours. ? Placed on normal saline 125 cc/h ? N.p.o. at midnight. 2 OR in a.m. for debridement Full code DVT prophylaxis: Heparin 5000 twice daily Attestations Medical Necessity Statement*: Patient will cross greater than 2 midnight stay for surgical debridement of cellulitis with necrotic area. He will also require IV antibiotics. 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
[2022-06-20] MEDS: morphine 4 mg/mL SDV 1 mL IVP (16:09)
[2022-06-20] MEDS: ondansetron 2 mg/ML SDV 2 mL 4 MG IVP (16:09)
[2022-06-20 16:39] LABS: Chol HDL Ratio 2.94 mg/dL (1.0-5.00); Cholesterol 147 mg/dL (0-200); HDL Cholesterol 50 mg/dL (60-100); LDL Cholesterol Calculated 68 mg/dL (50-129); LDL HDL Ratio 1.36 RATIO (0.00-3.22); Triglycerides 147 mg/dL (0-150)
[2022-06-20 16:41] LABS: Reflex Lactate Order REFLEX LACTIC ORDERD
[2022-06-20] MEDS: ipratropium-albuterol 3 mL Neb INHALATION (16:42)
[2022-06-20] MEDS: piperacillin-tazobactam 3.375 GM in sodium chloride 0.9% (plus) 50 ML IV ×2 (16:45→22:44)
[2022-06-20] MEDS: sodium chloride 0.9% 1,769.01 ML 1769.01 ML IV (16:45)
[2022-06-20] MEDS: heparin 5,000 unit/mL INJ 1 mL 5000 UNIT SUBCUT (17:08)
[2022-06-20 17:15] LABS: Alcohol Level < 10 mg/dL (0-10); Procalcitonin 0.06 ng/mL (0-0.5)
[2022-06-20 17:26] LABS: Estmated Average Glucose 131; Hemoglobin A1C 6.2 % (4.0-6.0)
[2022-06-20 17:45] LABS: Lactic Sepsis W/Reflex 1.2 mmol/L (0.5-2.2)
--- NOTE | 2022-06-20 17:56 | ECG_ITS ---
[facility] Test Date: 2022-06-20 Pat Name: Jose King Department: Room: 254 Gender: Male Cardiac Cath Rn: : 1965 Requested By: Josi Dee Order Number: [id number] Rhonda MD: Arcadio Stinson M.D. Measurements Intervals [place] Rate: 95 P: 61 DE: 237 QRS: 64 QRSD: 88 T: 80 QT: 357 QTc: 450 Interpretive Statements SINUS RHYTHM WITH FIRST DEGREE AV BLOCK No previous ECG available for comparison Electronically Signed On 06-21-2022 0:19:51 CDT by Arcadio Stinson M.D. [id number]
[2022-06-20] MEDS: sodium chloride 0.9% 1,000 ML 100 ML IV (18:15)
[2022-06-20] MEDS: vancomycin 1,500 MG/300 ML PIGGYBACK 200 MG IV (18:18)
[2022-06-20 18:49] LABS: Add Urine Microscopic? NO; Charge for UA Resulting for Rev
[2022-06-20 18:58] LABS: Bilirubin Urine Neg (Negative); Blood Urine Neg (Negative); Glucose Urine UA Norm (Normal); Ketones Urine Negative (Negative); Leukocyte Esterase Urine Negative (Negative); Nitrate Urine Negative (Negative); Protein Urine Neg (Negative); Urine Appearance Clear (CLEAR); Urine Color Yellow (Yellow); Urobilinogen Urine Norm (Negative); pH Urine 5 (5-7)
[2022-06-20 19:03] LABS: Amphetamines Screen Urine Positive (Negative); Barbiturates Screen Urine Negative (Negative); Benzodiazepines Screen Urine Positive (Negative); Cocaine Screen Urine Negative (Negative); Opiate Screen Urine Positive (Negative); PCP Screen Urine Negative (Negative); THC Screen Urine Positive (Negative)
--- NOTE | 2022-06-20 20:09 | PC.PHAR ---
Vancomycin is dosed at 1500mg IVPB every 12 hours to produce a predicted trough level of 15.82 (population based pharmacokinetic analysis). A trough level has been ordered from the lab to be obtained before the fourth dose to confirm and adjust if needed.
[2022-06-20] MEDS: morphine 4 mg/mL SDV 1 mL 1 MG IVP (21:09)
[2022-06-21] VITALS (18 sets, daily range): BP systolic 94–151; BP diastolic 76–97; PULSE 73–91; RESP 16–20; TEMP 36.4–37.2; O2SAT 92–100
[2022-06-21] MEDS: morphine 4 mg/mL SDV 1 mL 1 MG IVP (02:44)
[2022-06-21 05:02] LABS: Basophils # 0.1 10^3/uL (0.0-0.1); Basophils % 0.7 %; Eosinophils # 0.3 10^3/uL (0.0-0.8); Eosinophils % 4.4 %; Hematocrit 40.2 % (42.0-52.0); Hemoglobin 12.8 g/dL (11.7-16.6); Lymphocytes # 1.2 10^3/uL (0.8-4.8); Lymphocytes % 16.2 %; Mean Corpuscular HGB Conc 31.8 g/dL (30.0-36.0); Mean Corpuscular Hemoglobin 30.3 pg (28.0-34.0); Mean Platelet Volume 9.2 fL (7.4-10.4); Monocytes # 0.8 10^3/uL (0.2-0.9); Monocytes % 11.1 %; Neutrophils # 5.09 10^3/uL (1.8-7.7); Neutrophils % 67.3 %; Nucleated Red Blood Cells % 0 %; Platelet Count 327 10^3/cmm (130-400); Red Blood Count 4.23 10^6/uL (4.1-5.3); Red Cell Distribution Width 12.8 % (12.1-15.1); White Blood Count 7.6 10^3/uL (4.0-10.0)
--- NOTE | 2022-06-21 05:32 | P.CONIM_ITS ---
Providers/Reason For Consult Consulting Physician/Specialty*: Tobi Delcid D.P.M. Reason for Consult*: Cellulitis right foot. Septic joint right fourth toe Attending Physician: Josi Dee MD Primary Care Provider: Colby Sen MD History of Present Illness History of Present Illness Jose King is a 57 year old nondiabetic male patient presenting to the clinic for evaluation of a infected wound of left foot due suspicion of insect bite.? Patient is NWB and utilizing crutches at this visit. Patient states that a a pimple like place developed on his right 4th toe about a week ago and then the area became worse and the pain has been getting worse. Patient went to the ER 06/17/2022, was given Levaquin 750 mg daily,? and referral to podiatry.? Since Friday when he started Levaquin he has experienced increased redness.? He is now having redness streaking across the top of his right foot towards his ankle, having increased drainage from the wound and overall worsening appearance per his and his 's report.? Patient states that his pain is at a 3/10 at this visit. Patient nausea, vomiting, fever, chills, shortness of breath. Allergies Review of Systems General: Reports: 10 or more systems reviewed and unremarkable except in HPI and below Const: Denies: fever(s) or chills Eyes: Denies: change in vision Card: Denies: chest pain or palpitations Resp: Denies: dyspnea or productive cough GI: Denies: abdominal pain, nausea or vomiting : Denies: flank pain Musc: Reports: extremity swelling, joint stiffness and deformity Skin/Breast: Reports: erythema, sores, changes in skin color, dry skin, nail changes and change in hair Neuro: Reports: numbness in extremities, sensory changes and difficulty wa lking Psych: Denies: suicidal ideation Endo: Denies: change in body appearance Ángel/Lymph: Denies: tender lymph nodes Medications/Allergies Home Medications Medication Instructions Recorded Confirmed Last Taken Type ergocalciferol (vitamin D2) 1,250 1,250 mcg PO DAILY #15 caps 10/29/21 06/20/22 Unknown Rx mcg (50,000 unit) capsule (Vitamin D2) ibuprofen 600 mg tablet See Rx Instructions .Route 01/17/22 06/20/22 Unknown Rx .COMPLEX #75 tabs folic acid 1 mg tablet 1 mg PO DAILY #90 tabs 01/25/22 06/20/22 Unknown Rx gabapentin 300 mg capsule See Rx Instructions .Route 04/29/22 06/20/22 Unknown Rx .COMPLEX #60 caps omeprazole 40 mg capsule,delayed See Rx Instructions .Route 04/29/22 06/20/22 Unknown Rx release .COMPLEX #90 caps leflunomide 20 mg tablet 20 mg PO DAILY #30 tabs 05/21/22 06/20/22 Unknown Rx hydrocodone 10 mg-acetaminophen 1 tab PO BID PRN pain 30 days #60 05/27/22 06/20/22 Unknown Rx 325 mg tablet tabs diazepam 5 mg tablet 5 mg PO TID PRN anxiety 30 days 05/29/22 06/20/22 Unknown Rx #65 tabs levofloxacin 500 mg tablet 500 mg PO DAILY 10 days #10 tabs 06/17/22 06/20/22 Unknown Rx Allergies Allergy/AdvReac Type Severity Reaction Status Date / Time codeine Allergy nausea Verified 06/20/22 09:27 Current Medications Generic Name Dose Route Start Last Admin Trade Name Freq PRN Reason Stop Dose Admin Heparin Sodium (Porcine) 5,000 unit 06/20/22 15:30 06/21/22 02:50 Heparin 5,000 Unit/Ml Inj 1 Ml SUBCUT Not Given Q12H FLAQUITO Sodium Chloride 1,000 mls @ 100 mls/hr 06/20/22 15:30 06/20/22 18:15 Sodium Chloride 0.9% IV 100 mls/hr .Q10H FLAQUITO Administration Piperacillin Sod/Tazobactam 50 mls @ 12.5 mls/hr 06/20/22 22:45 06/21/22 02:44 Sod 3.375 gm/ Sodium Chloride IV Infused Q8H FLAQUITO Infusion Morphine Sulfate 1 mg 06/20/22 21:04 06/21/22 02:44 Morphine 4 Mg/Ml Sdv 1 Ml IVP 1 mg Q4H PRN Administration SEVERE PAIN PFSH Acute PFSH: Medical History Bilateral hand pain Calcium pyrophosphate deposition disease (CPPD) Cervical disc disorder with radiculopathy, cervicothoracic region Generalized anxiety disorder High risk medication use Immunization counseling Inflammatory arthritis Peripheral neuropathy Seronegative rheumatoid arthritis of both hands Surgical History History of carpal tunnel release Open release of the median nerve at the right wrist, 08/23/2019, [facility] History of fusion of cervical spine C2-C3 ACDFF, [facility], 03/09/2001; C2-C6 posterior fusion/fixation, [facility], 04/01/2014 Family History Father Stroke Denies family history of Rheumatoid arthritis Diabetes Lupus Lung disease Cancer Hypertension Social History Smoking and tobacco status: current every day smoker cigarettes [ Other cigarette details: using chantix to try to quit at this time] and cigars Quit status (tobacco): has tried quititng Alcohol intake: current Alcohol intake frequency: few times a week Household members: none Marital status: Current occupational status: disabled History of recent travel: No Vitals/I&O/Wt Last Vital Signs Temp 97.6 F 06/21/22 04:00 Pulse 85 06/21/22 04:00 Resp 16 06/21/22 04:00 BP 138/85 06/21/22 04:00 Pulse Ox 98 06/21/22 04:00 O2 Del Method 06/21/22 04:00 06/20/22 06/20/22 06/21/22 14:59 22:59 06:59 Intake Total 2599.01 / 2599.01 50 / 2649.01 Output Total 600 / 600 200 / 800 Balance / 1998. -150 / 1849.01 Weight last 48 hrs Weight 134 lb Weight 130 lb Physical Exam Narrative: Patient is alert and oriented ?3 and in no acute distress.? The following is a focused bilateral lower extremity exam. VASCULAR: Dorsalis pedis and posterior tibial arteries palpable +2.? Triphasic signal appreciated with pedal Doppler at posterior tibial artery and dorsalis pedis artery of the right foot.? Capillary refill time less than 3 seconds to the distal hallux bilaterally. Calf is supple and nontender proximally and distally.? Pedal hair growth present.? Edema to the right fourth toe and dorsum of the right forefoot. NEUROLOGICAL: Epicritic and protopathic sensations grossly intact to the lower extremities.? +2 Achilles tendon reflex noted bilaterally.? Negative Tinel sign upon percussion of lower extremity nerves. DERMATOLOGICAL: Wound probing down to bone at the level of the proximal interphalangeal joint of the right fourth toe.? Has macerated devitalized base with purulent drainage.? Erythema to the right great toe with proximal streaking across the dorsum of the right forefoot and to the dorsum of the right midfoot. MUSCULOSKELETAL: Pain to palpation at the right fourth toe.? No soft tissue crepitus.? No palpable mass along the course of the plantar fascia appreciated.? No pain to palpation along the course of the bilateral Achilles tendon.? No pain to palpation along the course posterior tibial tendon or peroneal tendons.? No pain with [id number] compression of calcaneus, bilaterally.? Muscle strength is 5/5 in all 3 cardinal planes pain-free without guarding to the foot and ankle, bilaterally. CARDIOVASCULAR: S1, S2, normal rate, normal rhythm. Dorsalis pedis and posterior tibial arteries palpable. LUNGS: Clear to auscltation, no use of acessory muscles, no crackles or wheezes. Data : 06/21/22 04:22 06/20/22 14:48 Micro: Microbiology 06/20/22 16:20 Blood Culture - Preliminary Blood SPECIMEN COLLECTED 06/20/22 16:17 Blood Culture - Preliminary Blood SPECIMEN COLLECTED A&P Assessment and plan (1) Septic arthritis of interphalangeal joint of toe of right foot: Status: Acute (2) Cellulitis of right foot: Status: Acute (3) Peripheral neuropathy: Status: Acute Qualifiers: Peripheral neuropathy type: inflammatory polyneuropathy, unspecified Qualified Code(s): G61.9 - Inflammatory polyneuropathy, unspecified Plan 57-year-old nondiabetic male presents with suspected insect bite to the dorsum of the right fourth toe.? Is approximately 1.5 weeks out from initial symptoms and concern for insect bite which began as a small raised area resembled a pimple.? Area of necrosis and redness occurred and patient reported to emergency department 06/17/2022 and was prescribed 750 mg Levaquin daily.? Increased cellu litis and worsening wound with increased depth and purulent drainage over the past 3 days while on Levaquin.? Has failed outpatient antibiotics.? Recommended admission to the hospital service, empiric IV antibiotics and surgical debridement in efforts to save his right fourth toe.? Patient is agreeable and will report to the emergency department, planning on vertical flow.? 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 Spoke with Dr. Dee who graciously excepted admission.? Will be n.p.o. at midnight and plans for incision and debridement right foot tomorrow morning at 7 AM. My interpretation of x-rays taken 3 views right foot at today's visit shows subluxation at the proximal interphalangeal joint right fourth toe indicative of septic joint, wound probes directly to this joint clinically.? No soft tissue emphysema, no obvious bony destruction appreciated on plain film x-ray. -Greatly appreciate hospitalist for medical management -N.p.o. at midnight -Incision and debridement 06/21/2022 7 AM -Will offload with Darco shoe/OrthoWedge heel -Saline wet-to-dry 3 times daily to the right foot wound -Receiving empiric IV antibiotics, may narrow once cultures yield further information -Podiatry will follow. Coding Level of Care Code Acute Section Leader Screen Printing for [facility] Diagnoses Septic arthritis of interphalangeal joint of toe of right foot M00.9 Cellulitis of right foot L03.115 Peripheral neuropathy G61.9 Peripheral neuropathy type: inflammatory polyneuropathy, unspecified
[2022-06-21 05:40] LABS: Alanine Aminotransferase 17 U/L (0-41); Albumin Level 3.3 g/dL (3.5-5.2); Alkaline Phosphatase 88 U/L (40-130); Anion Gap 11.1 (5-19); Aspartate Amino Transferase 28 U/L (0-40); Blood Urea Nitrogen 11 mg/dL (6-20); Calcium 8.9 mg/dL (8.5-10.5); Carbon Dioxide 26 mmol/L (22-29); Chloride 104 mmol/L (98-107); Globulin 2.4 g/dL (1.3-4.6); Glomerular Filtration Rate 139.4 mL/min (90-130); Glucose 98 mg/dL (65-115); Magnesium 1.8 mg/dL (1.7-2.3); Osmolality Calculated 283 mOsm/kg (285-295); Potassium 4.1 mmol/L (3.5-5.1); Sodium 137 mmol/L (136-145); Total Bilirubin 0.4 mg/dL (0.15-1.2); Total Protein 5.7 g/dL (6.6-8.7)
[2022-06-21] MEDS: sodium chloride 0.9% 1,000 ML 100 ML IV ×2 (05:41→10:39)
[2022-06-21] MEDS: piperacillin-tazobactam 3.375 GM in sodium chloride 0.9% (plus) 50 ML IV ×3 (05:44→22:04)
[2022-06-21] MEDS: vancomycin 1,500 MG/300 ML PIGGYBACK 150 MG IV ×2 (05:45→17:47)
--- NOTE | 2022-06-21 06:25 | ANES.PREANE2 ---
Pre-Anesthetic Assessment Height/Weight: Height 1.73 m Weight 60.781 kg Temp Pulse Resp BP Pulse Ox O2 Del Method 99.0 F 77 18 151/97 97 06/21/22 06:05 06/21/22 06:05 06/21/22 06:05 06/21/22 06:05 06/21/22 06:05 06/21/22 06:05 Preop Diagnosis: Cellulitis Operation Date: 06/21/22 07:00 Proposed Procedures p Incision And Drainage(Right) - Tobi Delcid DPM Familial anesthetic complications: None Was Beta Jose taken within 24 hours: N/A Was Clonidine taken within 24 hours: N/A Last intake: Intake Last Liquid Date 06/20/22 Last Liquid Time 23:55 Last Solid Date 06/20/22 Last Solid Time 18:45 Social No alcohol and No tobacco Exam alert, oriented x 3, clear to auscultation bilaterally and regular rate & rhythm Airway Submandibular: within normal limits Cervical ROM: Other (Extension and flexion limited ) Mallampati: Class III Dentition: full History/ROS No significant complaints Pulmonary None reported CV/HEM Arrythmia (1st degree block ) Calcium pyrophosphate deposition disease METS > 4 None reported Hepatic None reported GI Gastroesophageal Reflux Disease (Well controlled ) Metabolic None reported Musc/skel Osteoarthritis/DJD and Rheumatoid Arthritis Septic arthritis Infected wound Hx of cervical spine fusion, cervical dystonia Neuropsych Anxiety and Neuropathy Anesthetic Plan ASA status: 3 Anesthesia: Anesthesia Evaluation, General and MAC Other: I discussed with the patient risks, goals, and benefits of MAC and general anesthesia. We discussed spectrum of MAC anesthesia including conversion to general as well as possibility of recall of intraoperative stimuli including discomfort/pain. Patient agrees to proceed with MAC. Risk of > 500 ml blood loss (7ml/kg in children): No Medications/Allergies Home Medications Medication Instructions Recorded Confirmed Last Taken Type ergocalciferol (vitamin D2) 1,250 1,250 mcg PO DAILY #15 caps 10/29/21 06/20/22 Unknown Rx mcg (50,000 unit) capsule (Vitamin D2) ibuprofen 600 mg tablet See Rx Instructions .Route 01/17/22 06/20/22 Unknown Rx .COMPLEX #75 tabs folic acid 1 mg tablet 1 mg PO DAILY #90 tabs 01/25/22 06/20/22 Unknown Rx gabapentin 300 mg capsule See Rx Instructions .Route 04/29/22 06/20/22 Unknown Rx .COMPLEX #60 caps omeprazole 40 mg capsule,delayed See Rx Instructions .Route 04/29/22 06/20/22 Unknown Rx release .COMPLEX #90 caps leflunomide 20 mg tablet 20 mg PO DAILY #30 tabs 05/21/22 06/20/22 Unknown Rx hydrocodone 10 mg-acetaminophen 1 tab PO BID PRN pain 30 days #60 05/27/22 06/20/22 Unknown Rx 325 mg tablet tabs diazepam 5 mg tablet 5 mg PO TID PRN anxiety 30 days 05/29/22 06/20/22 Unknown Rx #65 tabs levofloxacin 500 mg tablet 500 mg PO DAILY 10 days #10 tabs 06/17/22 06/20/22 Unknown Rx Allergies Allergy/AdvReac Type Severity Reaction Status Date / Time codeine Allergy nausea Verified 06/20/22 09:27 Current Medications Generic Name Dose Route Start Last Admin Trade Name Freq PRN Reason Stop Dose Admin Heparin Sodium (Porcine) 5,000 unit 06/20/22 15:30 06/21/22 02:50 Heparin 5,000 Unit/Ml Inj 1 Ml SUBCUT Not Given Q12H FLAQUITO Sodium Chloride 1,000 mls @ 100 mls/hr 06/20/22 15:30 06/21/22 05:41 Sodium Chloride 0.9% IV 100 mls/hr .Q10H FLAQUITO Administration Piperacillin Sod/Tazobactam 50 mls @ 12.5 mls/hr 06/20/22 22:45 06/21/22 05:44 Sod 3.375 gm/ Sodium Chloride IV 12.5 mls/hr Q8H FLAQUITO Administration Vancomycin/PEG/NADA/Lysine/Water 1,500 mg in 300 mls @ 150 mls/hr 06/21/22 06:30 06/21/22 05:45 Vancocin IV 150 mls/hr Q12H FLAQUITO Administration Morphine Sulfate 1 mg 06/20/22 21:04 06/21/22 02:44 Morphine 4 Mg/Ml Sdv 1 Ml IVP 1 mg Q4H PRN Administration SEVERE PAIN PFSH Anesthesia Medical History Bilateral hand pain Calcium pyrophosphate deposition disease (CPPD) Cervical disc disorder with radiculopathy, cervicothoracic region Generalized anxiety disorder High risk medication use Immunization counseling Inflammatory arthritis Peripheral neuropathy Seronegative rheumatoid arthritis of both hands Surgical History History of carpal tunnel release Open release of the median nerve at the right wrist, 08/23/2019, [facility] History of fusion of cervical spine C2-C3 ACDFF, [facility], 03/09/2001; C2-C6 posterior fusion/fixation, [facility], 04/01/2014 Family History Father Stroke Denies family history of Rheumatoid arthritis Diabetes Lupus Lung disease Cancer Hypertension Social History Smoking and tobacco status: current every day smoker cigarettes [ Other cigarette details: using chantix to try to quit at this time] and cigars Quit status (tobacco): has tried quititng Alcohol intake: current Alcohol intake frequency: few times a week Household members: none Marital status: Current occupational status: disabled History of recent travel: No Data Anesthesia : 06/21/22 04:22 06/21/22 04:22 Short CBC 06/20/22 06/21/22 Range/Units 14:48 04:22 WBC 7.9 7.6 (4.0-10.0) 10^3/uL Hgb 13.7 12.8 (11.7-16.6) g/dL Hct 42.2 40.2 L (42.0-52.0) % MCV 92.5 95.0 H (80-94) fl Plt Count 389 327 (130-400) 10^3/cmm Neut % (Auto) 62.9 67.3 % Neut # (Auto) 4.99 5.09 (1.8-7.7) 10^3/uL BMP 06/20/22 06/21/22 14:48 04:22 Sodium 140 137 Potassium 4.1 4.1 Chloride 102 104 Carbon Dioxide 26 26 BUN 15 11 Creatinine 0.9 0.6 L Glucose 109 98 Calcium 10.1 8.9 Liver Function 06/20/22 06/21/22 Range/Units 14:48 04:22 Total Bilirubin 0.2 0.4 (0.15-1.2) mg/dL AST 18 28 (0-40) U/L ALT 12 17 (0-41) U/L Alkaline Phosphatase 101 88 (40-130) U/L Albumin 4.0 3.3 L (3.5-5.2) g/dL Urine 06/20/22 Range/Units 17:34 Urine Color Yellow (Yellow) Urine Appearance Clear (CLEAR) Urine pH 5 (5-7) Ur Specific [place] 1.020 (1.005-1.030) Urine Protein Neg (Negative) Urine Glucose (UA) Norm (Normal) Urine Ketones Negative (Negative) Urine Nitrate Negative (Negative) Urine Bilirubin Neg (Negative) Ur Leukocyte Esterase Negative (Negative) Coags 06/20/22 06/20/22 14:48 14:48 ESR Cancelled C-Reactive Protein 22.3 H Microbiology 06/20/22 16:20 Blood Culture - Preliminary Blood SPECIMEN COLLECTED 06/20/22 16:17 Blood Culture - Preliminary Blood SPECIMEN COLLECTED Cardiac Studies: No Data to Display
--- NOTE | 2022-06-21 06:30 | W.PM.OPSUD ---
Surgery/Procedure H&P Update DATE OF PROCEDURE: June 21, 2022 DATE H&P PERFORMED: 06/21/22 CHANGES TO PREVIOUS DOCUMENTATION: None PRIMARY INDICATION FOR PROCEDURE: Cellulitis right foot. Septic joint right fourth toe PLANNED PROCEDURE: Operation Date: 06/21/22 07:00 Proposed Procedures p Incision And Drainage(Right) - Tobi Delcid DPM
--- NOTE | 2022-06-21 07:25 | P.OP_ITS ---
Operative Report Date of procedure: June 21, 2022 Pre-op diagnosis: Preop Diagnosis Cellulitis Post-op diagnosis: Cellulitis and septic joint Procedure done: Incision and debridement down to bone right foot CPT code 28096 Implants: None Specimens removed/disposition: Soft tissue right fourth toe sent to microbiology for gram stain and culture Surgeon: Tobi Delcid D.P.M. Loading Dock Helper: Son Estimated blood loss: 5 No tourniquet IV fluids: None Urine output: None Complications: None Findings: Devitalized soft tissue and exposed bone right fourth toe with purulence tracking at the dorsal forefoot Brief History: 57-year-old nondiabetic male presents with suspected insect bite to the dorsum of the right fourth toe.? Is approximately 1.5 weeks out from initial symptoms and concern for insect bite which began as a small raised area resembled a pimple.? Area of necrosis and redness occurred and patient reported to emergency department 06/17/2022 and was prescribed 750 mg Levaquin daily.? Increased cellulitis and worsening wound with increased depth and purulent drainage over the past 3 days while on Levaquin.? Has failed outpatient antibiotics.? Recommended admission to the hospital service, empiric IV antibiotics and surgical debridement in efforts to save his right fourth toe.? Patient is agreeable and will report to the emergency department, planning on vertical flow.? pressing department supervisor to place pending order.? Spoke with Dr. Dee who graciously excepted admission.? Will be n.p.o. at midnight and plans for incision and debridement right foot tomorrow morning at 7 AM. My interpretation of x-rays taken 3 views right foot at today's visit shows subluxation at the proximal interphalangeal joint right fourth toe indicative of septic joint, wound probes directly to this joint clinically.? No soft tissue emphysema, no obvious bony destruction appreciated on plain film x-ray. Procedure: Under mild sedation the patient was brought to the operating room and remained on the gurney in supine position. A timeout is performed. Anesthesia was then administered by the anesthesia service. Local anesthesia injected by myself 30 cc of 0.5% Marcaine plain in a right ankle block fashion. No tourniquet utilized during this procedure. Foot was not examined and weighted. The right lower extremity was scrubbed, prepped and draped utilizing normal aseptic technique. Attention was directed to a full-thickness wound to the right third toe with exposed extensor tendon. Sharp dissection around the margins of the wound of devitalized epidermis, dermis, subcutaneous tissue and some tendon was performed with pickups and a #15 blade. The proximal phalange joint was incised and flushed with copious amounts of sterile skin solution. There is erythema/cellulitis tracking across the dorsum of the forefoot to the right lower extremity and some purulence expressed from the dorsal subcutaneous tissue of the right forefoot. A incision was then extended proximally over the second metatarsal for further debridement of devitalized tissue that was done sharply followed by saline irrigation. Incision down to phalanx. Was performed this was sent to microbiology for gram stain and culture. Patient will continue with IV antibiotics. Will continue to monitor daily clinical response to surgical debridement and medical management. May require further debridement. Duration of procedure 8 minutes. No complications.
[2022-06-21] MEDS: morphine 4 mg/mL SDV 1 mL IVP (11:23)
--- NOTE | 2022-06-21 13:18 | PC.CHAP ---
Pastoral Care Encounter/Spiritual Assessment Type of Contact [] Declined lending advisor visit [] Patient/Family/Request visit [] Outpatient visit [] Follow-up visit [] Physician referral [] Code/Alert [x] Routine visit [] Staff referral [] Actively dying [] Patient sleeping [] Family support [] [] Out of room [] Palliative care [] [] Receiving care in room [] Pre-surgical visit [] Trauma [] Long length of stay [] ICU visit [] Other: Relational/Emotional Strength [x] Patient feels connected with others/family/visitors/staff [] Distress [] Loneliness/isolation [] Abandonment Spirituality of Patient [] Person of Ayesha [] Attends [employer] of their Ayesha [] Believes in Prayer [] Reads Bible or Tenriism materials [x] There are Spiritual issues to be addressed Radiology Supervisor Interventions [] Prayer [] Active listening [] Non-anxious presence [] Spiritual/emotional support [] Crisis/trauma care [] Spiritual counseling [] Bereavement support [] Provided bereavement packet [] Provided Bible/devotional materials [] Provided toy/stuffed animal, coloring book to patient or family member [] Provided Communion [] Anointing/Gove [] Salvation [x] Completed spiritual assessment [] Other: Impact on Illness or Injury [] Angry [] Fearful [] Anxious [] Often cries [] Exhaustion [] Unable to work [] Unable to attend congregational [] Unable to walk/stand [] Unable to read [] Unable to drive [] Unable to eat/drink [] Unable to sleep [] Unable to be with family [] Patient intubated [] Other: Summary Time spent with patient 10 min
--- NOTE | 2022-06-21 13:43 | ANE.PACU2 ---
Inpatient post-anesthesia follow up: Airway intact: Yes Vital signs: Temperature 98.0 F Pulse Rate 80 Respiratory Rate 16 Blood Pressure 146/91 Pulse Oximetry 98 Oxygen Delivery Me thod Room Air Oxygen Flow Rate 5 Fraction of Inspir ed Oxygen Hydration adequate: Yes Nausea and vomiting: No Pain level: 3 Mental status: Baseline
--- NOTE | 2022-06-21 14:31 | P.PN_ITS ---
Subjective Subjective: Seen this morning. Patient just returned from surgery. He is complaining of pain in his toe he states starting to throb. I have ordered morphine 4 mg IV x1 for him. Although at oral pain medications as well. As per surgeon patient may require further debridement. He denies any other issues at this time and is resting comfortably in bed. Vitals/I&O/Wt Last Vital Signs Temp 98.1 F 06/21/22 13:00 Pulse 88 06/21/22 13:00 Resp 18 06/21/22 13:00 BP 133/91 06/21/22 13:00 Pulse Ox 97 06/21/22 13:00 O2 Del Method 06/21/22 13:00 O2 Flow Rate 5 06/21/22 07:25 06/20/22 06/21/22 06/21/22 22:59 06:59 14:59 Intake Total 2599.01 / 2599.01 1050 / 3649.01 1086.667 / 1086.667 Output Total 600 / 600 700 / 1300 0 / 0 Balance / 350 / 2349.01 1086.667 / 1086.667 Weight last 48 hrs Weight 60.781 kg Weight 58.967 kg Physical Exam Narrative: General: Alert oriented x3, patient seen sitting up in recliner in a vertical flow. Cachectic male, some temporal wasting noted HEENT: Normocephalic, atraumatic, EOMI, breathing normally on room air Cardio: Regular rate rhythm, normal S1-S2, Respiratory: Diminished air entry bilaterally, very mild wheezing at bases GI: Abdomen soft, nontender, nondistended, bowel sounds + Behavior: Appropriate and cooperative Extremities: Right foot covered with compression Band-Aid Data : 06/21/22 04:22 06/21/22 04:22 Micro: Microbiology 06/20/22 16:20 Blood Culture - Preliminary Blood SPECIMEN COLLECTED 06/20/22 16:17 Blood Culture - Preliminary Blood SPECIMEN COLLECTED A&P Assessment and plan (1) Septic arthritis of interphalangeal joint of toe of right foot: Status: Acute (2) Cellulitis of right foot: Status: Acute (3) Infected wound of left foot due to nonvenomous insect bite: Status: Acute (4) Seronegative rheumatoid arthritis of both hands: Status: Acute (5) Peripheral neuropathy: Status: Acute Qualifiers: Peripheral neuropathy type: inflammatory polyneuropathy, unspecified Qualified Code(s): G61.9 - Inflammatory polyneuropathy, unspecified (6) Generalized anxiety disorder: Status: Acute Plan #Sepsis secondary to right foot cellulitis with necrotic area on fourth toe secondary to insect bite (hypotension, tachycardia, lactic acidosis) #Bilateral rheumatoid arthritis #Septic arthritis of right foot #Amphetamine abuse #Anxiety #Peripheral neuropathy #Nicotine dependence, attempting to quit #Social alcohol drinker #Immunocompromised status -Failed outpatient therapy. ? Continue gabapentin, diazepam 3 times daily as needed, hydrocodone acetaminophen 10/325, leflunomide, omeprazole, Zofran. . ? Continue t IV vancomycin, IV Zosyn ? Continue DuoNeb every 4 hours scheduled ? CRP 22.3, ESR pending. CT right foot with contrast was ordered as urgent yesterday at admission but apparently did not get completed. Patient went for surgery without the CT. At this point I will cancel the order. We will order further imaging is warranted clinically later on -Intraoperative wound cultures sent to lab. ? Thiamine, folic acid ? Placed on CIWA protocol ? Continue normal saline 125 cc/h ? Patient is status postdebridement and may require further debridement as per surgeon. Podiatry on board. Recommendations appreciated. Full code DVT prophylaxis: Heparin 5000 twice daily Attestations Medical Necessity Statement*: Patient requires inpatient stay for IV antibiotics and may require further debridement as per clinical course. Coding Level of Care Code Acute Computer Network And Systems Engineer for [facility] Fwd Diagnoses Septic arthritis of interphalangeal joint of toe of right foot M00.9 Cellulitis of right foot L03.115 Infected wound of left foot due to nonvenomous insect bite S90.862A; L08.9; W57.XXXA Seronegative rheumatoid arthritis of both hands M06.041; M06.042 Peripheral neuropathy G61.9 Peripheral neuropathy type: inflammatory polyneuropathy, unspecified Generalized anxiety disorder F41.1
[2022-06-21] MEDS: ibuprofen 600 mg Tablet PO (14:48)
[2022-06-21] MEDS: HYDROcodone-acetaminophen 10-325 mg Tablet 1 TAB PO (14:49)
[2022-06-21] MEDS: heparin 5,000 unit/mL INJ 1 mL 5000 UNIT SUBCUT (14:52)
[2022-06-21] MEDS: folic acid 1 mg Tablet PO (14:52)
[2022-06-21] MEDS: LORazepam 2 mg/mL INJ 1 mL IVP (17:11)
[2022-06-21] MEDS: nicotine 21 mg Patch 1 PATCH TRANSDERMA (19:58)
[2022-06-21] MEDS: gabapentin 300 mg Capsule PO (20:00)
[2022-06-22] VITALS (7 sets, daily range): BP systolic 113–147; BP diastolic 69–89; PULSE 69–90; RESP 16–18; TEMP 36.4–36.8; O2SAT 93–96
[2022-06-22] MEDS: sodium chloride 0.9% 1,000 ML 100 ML IV ×2 (02:20→15:24)
[2022-06-22] MEDS: HYDROcodone-acetaminophen 10-325 mg Tablet 1 TAB PO ×2 (02:29→15:22)
[2022-06-22] MEDS: heparin 5,000 unit/mL INJ 1 mL 5000 UNIT SUBCUT ×2 (02:32→15:22)
[2022-06-22 05:16] LABS: Basophils # 0.1 10^3/uL (0.0-0.1); Basophils % 0.8 %; Eosinophils # 0.5 10^3/uL (0.0-0.8); Eosinophils % 7.3 %; Hematocrit 38.7 % (42.0-52.0); Hemoglobin 12.3 g/dL (11.7-16.6); Lymphocytes # 1.4 10^3/uL (0.8-4.8); Lymphocytes % 21.9 %; Mean Corpuscular HGB Conc 31.8 g/dL (30.0-36.0); Mean Corpuscular Volume 94.4 fl (80-94); Mean Platelet Volume 9.1 fL (7.4-10.4); Monocytes # 0.9 10^3/uL (0.2-0.9); Neutrophils # 3.51 10^3/uL (1.8-7.7); Neutrophils % 55.7 %; Nucleated Red Blood Cells % 0 %; Platelet Count 317 10^3/cmm (130-400); Red Cell Distribution Width 12.7 % (12.1-15.1); White Blood Count 6.3 10^3/uL (4.0-10.0)
[2022-06-22 05:37] LABS: Anion Gap 11.3 (5-19); Blood Urea Nitrogen 9 mg/dL (6-20); Calcium 8.8 mg/dL (8.5-10.5); Carbon Dioxide 27 mmol/L (22-29); Chloride 106 mmol/L (98-107); Glucose 101 mg/dL (65-115); Osmolality Calculated 289 mOsm/kg (285-295); Potassium 4.3 mmol/L (3.5-5.1); Sodium 140 mmol/L (136-145)
[2022-06-22 05:42] LABS: Vancomycin Trough 15.3 ug/mL (10-15)
[2022-06-22] MEDS: vancomycin 1,500 MG/300 ML PIGGYBACK 150 MG IV ×2 (05:42→18:09)
[2022-06-22] MEDS: piperacillin-tazobactam 3.375 GM in sodium chloride 0.9% (plus) 50 ML IV ×3 (05:44→22:34)
[2022-06-22 05:48] LABS: Creatinine Clr Calc Pharmacy 152.4889
--- NOTE | 2022-06-22 08:52 | PM.PN ---
Subjective Subjective: Patient is seen bedside this morning, no acute events overnight. He is status post incision and debridement right foot date of operation 06/21/2022. Patient is sensate has pain with dressing changes. Patient denies any subjective nausea, vomiting, fever, chills, shortness of breath or chest pain. Vitals/I&O/Wt Last Vital Signs Temp 97.6 F 06/22/22 07:48 Pulse 89 06/22/22 07:52 Resp 16 06/22/22 07:52 BP 147/89 06/22/22 07:48 Pulse Ox 94 06/22/22 07:52 O2 Del Method 06/22/22 07:52 O2 Flow Rate 5 06/21/22 07:25 06/21/22 06/22/22 06/22/22 22:59 06:59 14:59 Intake Total 2070 / 3156.667 50 / 3206.667 Output Total 1800 / 1800 600 / 2400 Balance 270 / 1356.667 -550 / 806.667 Weight last 48 hrs Weight 134 lb Weight 130 lb Physical Exam Narrative: Patient is alert and oriented ?3 and in no acute distress.? The following is a focused bilateral lower extremity exam. VASCULAR: Dorsalis pedis and posterior tibial arteries palpable +2.? Triphasic signal appreciated with pedal Doppler at posterior tibial artery and dorsalis pedis artery of the right foot.? Capillary refill time less than 3 seconds to the distal hallux bilaterally. Calf is supple and nontender proximally and distally.? Pedal hair growth present.? Edema to the right fourth toe and dorsum of the right forefoot. NEUROLOGICAL: Epicritic and protopathic sensations grossly intact to the lower extremities.? +2 Achilles tendon reflex noted bilaterally.? Negative Tinel sign upon percussion of lower extremity nerves. DERMATOLOGICAL: Wound with incision to the dorsum of the right fourth toe extending to the dorsal aspect of the right second metatarsal phalangeal joint. Cellulitis has subsided from the line of demarcation, no purulence appreciated. No malodor or soft tissue crepitus. MUSCULOSKELETAL: Pain to palpation at the right fourth toe.? No soft tissue crepitus.? No palpable mass along the course of the plantar fascia appreciated.? No pain to palpation along the course of the bilateral Achilles tendon.? No pain to palpation along the course posterior tibial tendon or peroneal tendons.? No pain with [id number] compression of calcaneus, bilaterally.? Muscle strength is 5/5 in all 3 cardinal planes pain-free without guarding to the foot and ankle, bilaterally. Picture is 1 day status post incision and debridement. Cellulitis at the dorsal lateral foot is subsiding. Data : 06/22/22 04:55 06/22/22 04:55 Micro: Microbiology 06/20/22 16:20 Blood Culture - Preliminary Blood NEGATIVE TO DATE 06/20/22 16:17 Blood Culture - Preliminary Blood NEGATIVE TO DATE A&P Assessment and plan (1) Septic arthritis of interphalangeal joint of toe of right foot: Status: Acute (2) Cellulitis of right foot: Status: Acute (3) Peripheral neuropathy: Status: Acute Qualifiers: Peripheral neuropathy type: inflammatory polyneuropathy, unspecified Qualified Code(s): G61.9 - Inflammatory polyneuropathy, unspecified Plan 1 day status post incision and debridement right fourth toe Cellulitis at the dorsal lateral aspect of the right foot is subsiding No purulence expressed with dressing change this a.m. Performing saline wet-to-dry 3 times daily, appreciate nursing staff with assistance Patient reports decreased pain He may weight-bear as tolerated at this time, advised elevating his right foot while resting in bed. Intraoperative cultures pending. Patient receiving empiric IV antibiotics with improvement, may narrow once cultures yield further information Greatly appreciate hospitalist Podiatry will follow Attestations Medical Necessity Statement*: Cellulitis and septic joint right foot Coding Level of Care Code Acute Campus Security Officer for [facility] Diagnoses Septic arthritis of interphalangeal joint of toe of right foot M00.9 Cellulitis of right foot L03.115 Peripheral neuropathy G61.9 Peripheral neuropathy type: inflammatory polyneuropathy, unspecified
[2022-06-22] MEDS: nicotine 21 mg Patch 1 PATCH TRANSDERMA (09:12)
[2022-06-22] MEDS: LORazepam 2 mg Tablet PO (09:13)
[2022-06-22] MEDS: folic acid 1 mg Tablet PO (09:13)
[2022-06-22] MEDS: ibuprofen 600 mg Tablet PO ×2 (09:14→15:20)
[2022-06-22] MEDS: multivitamin therapeutic Tablet 1 TAB PO (09:15)
[2022-06-22] MEDS: gabapentin 300 mg Capsule PO ×2 (09:16→20:13)
--- NOTE | 2022-06-22 11:12 | PM.PN ---
Subjective Subjective: Seen this morning. No acute events overnight. Patient was sleeping when I saw him today. He was recently seen by / this AM who did a dressing change on him. Vitals/I&O/Wt Last Vital Signs Temp 97.6 F 06/22/22 07:48 Pulse 89 06/22/22 07:52 Resp 16 06/22/22 07:52 BP 147/89 06/22/22 07:48 Pulse Ox 94 06/22/22 07:52 O2 Del Method 06/22/22 07:52 O2 Flow Rate 5 06/21/22 07:25 06/21/22 06/22/22 06/22/22 22:59 06:59 14:59 Intake Total 2070 / 3156.667 50 / 3206.667 350 / 350 Output Total 1800 / 1800 600 / 2400 850 / 850 Balance 270 / 1356.667 -550 / 806.667 -500 / -500 Weight last 48 hrs Weight 60.781 kg Weight 58.967 kg Physical Exam Narrative: General: Alert oriented x3, patient seen sleeping in bed. Cachectic male, some temporal wasting noted HEENT: Normocephalic, atraumatic, EOMI, breathing normally on room air Cardio: Regular rate rhythm, normal S1-S2, Respiratory: Diminished air entry bilaterally, very mild wheezing at bases GI: Abdomen soft, nontender, nondistended, bowel sounds + Behavior: Appropriate and cooperative Extremities: Right foot covered with compression Band-Aid Data : 06/22/22 04:55 06/22/22 04:55 Micro: Microbiology 06/20/22 16:20 Blood Culture - Preliminary Blood NEGATIVE TO DATE 06/20/22 16:17 Blood Culture - Preliminary Blood NEGATIVE TO DATE A&P Assessment and plan (1) Septic arthritis of interphalangeal joint of toe of right foot: Status: Acute (2) Cellulitis of right foot: Status: Acute (3) Infected wound of left foot due to nonvenomous insect bite: Status: Acute (4) Seronegative rheumatoid arthritis of both hands: Status: Acute (5) Peripheral neuropathy: Status: Acute Qualifiers: Peripheral neuropathy type: inflammatory polyneuropathy, unspecified Qualified Code(s): G61.9 - Inflammatory polyneuropathy, unspecified (6) Generalized anxiety disorder: Status: Acute Plan #Sepsis secondary to right foot cellulitis with necrotic area on fourth toe secondary to insect bite (hypotension, tachycardia, lactic acidosis) #Bilateral rheumatoid arthritis #Septic arthritis of right foot #Amphetamine abuse #Anxiety #Peripheral neuropathy #Nicotine dependence, attempting to quit #Social alcohol drinker #Immunocompromised status -Failed outpatient therapy. ? Continue gabapentin, diazepam 3 times daily as needed, hydrocodone acetaminophen 10/325, leflunomide, omeprazole, Zofran. . ? Continue IV vancomycin, IV Zosyn ? Continue DuoNeb every 4 hours scheduled ? CRP 22.3, ESR pending. CT right foot with contrast was ordered as urgent yesterday at admission but apparently did not get completed. Patient went for surgery without the CT. We will order further imaging is warranted clinically later on - Intraoperative wound cultures sent to lab. ? Thiamine, folic acid ? Placed on CIWA protocol ? Continue normal saline 125 cc/h ? Patient is status postdebridement and may require further debridement as per surgeon. Podiatry on board. Recommendations appreciated. Full code DVT prophylaxis: Heparin 5000 twice daily Attestations Medical Necessity Statement*: Awaiting culture data. Until then continue IV antiobiotics. Coding Level of Care Code Acute Advertising Vice President for [facility] Fwd Diagnoses Septic arthritis of interphalangeal joint of toe of right foot M00.9 Cellulitis of right foot L03.115 Infected wound of left foot due to nonvenomous insect bite S90.862A; L08.9; W57.XXXA Seronegative rheumatoid arthritis of both hands M06.041; M06.042 Peripheral neuropathy G61.9 Peripheral neuropathy type: inflammatory polyneuropathy, unspecified Generalized anxiety disorder F41.1
[2022-06-23] VITALS (8 sets, daily range): BP systolic 100–161; BP diastolic 60–94; PULSE 72–93; RESP 15–18; TEMP 36.5–36.9; O2SAT 92–97
[2022-06-23] MEDS: HYDROcodone-acetaminophen 10-325 mg Tablet 1 TAB PO ×3 (02:53→20:29)
[2022-06-23] MEDS: heparin 5,000 unit/mL INJ 1 mL 5000 UNIT SUBCUT ×2 (02:55→14:34)
[2022-06-23] MEDS: sodium chloride 0.9% 1,000 ML 100 ML IV ×2 (02:55→14:37)
[2022-06-23] MEDS: piperacillin-tazobactam 3.375 GM in sodium chloride 0.9% (plus) 50 ML IV ×2 (05:56→14:34)
[2022-06-23] MEDS: vancomycin 1,500 MG/300 ML PIGGYBACK 150 MG IV ×2 (05:57→17:32)
--- NOTE | 2022-06-23 09:08 | PM.PN ---
Subjective Subjective: Patient is seen bedside this morning, no acute events overnight. He is in good spirits. He is status post incision and debridement right foot date of operation 06/21/2022. Patient is afebrile. No leukocytosis. Patient denies any subjective nausea, vomiting, fever, chills, shortness of breath or chest pain. Vitals/I&O/Wt Last Vital Signs Temp 98.1 F 06/23/22 04:47 Pulse 78 06/23/22 04:47 Resp 16 06/23/22 04:47 BP 121/69 06/23/22 04:47 Pulse Ox 95 06/23/22 07:39 O2 Del Method 06/23/22 07:39 O2 Flow Rate 5 06/21/22 07:25 06/22/22 06/23/22 06/23/22 22:59 06:59 14:59 Intake Total 350 / 1700 1505 / 3205 Output Total 650 / 2300 900 / 3200 Balance -300 / -600 605 / 5 Physical Exam Narrative: Patient is alert and oriented ?3 and in no acute distress.? The following is a focused bilateral lower extremity exam. VASCULAR: Dorsalis pedis and posterior tibial arteries palpable +2.? Triphasic signal appreciated with pedal Doppler at posterior tibial artery and dorsalis pedis artery of the right foot.? Capillary refill time less than 3 seconds to the distal hallux bilaterally. Calf is supple and nontender proximally and distally.? Pedal hair growth present.? Edema to the right fourth toe and dorsum of the right forefoot. NEUROLOGICAL: Epicritic and protopathic sensations grossly intact to the lower extremities.? +2 Achilles tendon reflex noted bilaterally.? Negative Tinel sign upon percussion of lower extremity nerves. DERMATOLOGICAL: Wound with incision to the dorsum of the right fourth toe extending to the dorsal aspect of the right second metatarsal phalangeal joint. Cellulitis has subsided from the line of demarcation, no purulence appreciated. No malodor or soft tissue crepitus. MUSCULOSKELETAL: Pain to palpation at the right fourth toe.? No soft tissue crepitus.? No palpable mass along the course of the plantar fascia appreciated.? No pain to palpation along the course of the bilateral Achilles tendon.? No pain to palpation along the course posterior tibial tendon or peroneal tendons.? No pain with [id number] compression of calcaneus, bilaterally.? Muscle strength is 5/5 in all 3 cardinal planes pain-free without guarding to the foot and ankle, bilaterally. Picture is 1 day status post incision and debridement. Cellulitis at the dorsal lateral foot is subsiding. Data : 06/22/22 04:55 06/22/22 04:55 Micro: Microbiology 06/21/22 07:14 Gram Stain - Final Toe - #1 Wound Culture - Preliminary A&P Assessment and plan (1) Septic arthritis of interphalangeal joint of toe of right foot: Status: Acute (2) Cellulitis of right foot: Status: Acute (3) Peripheral neuropathy: Status: Acute Qualifiers: Peripheral neuropathy type: inflammatory polyneuropathy, unspecified Qualified Code(s): G61.9 - Inflammatory polyneuropathy, unspecified Plan 2 days status post incision and debridement right fourth toe Cellulitis at the dorsal lateral aspect of the right foot is subsiding No purulence expressed with dressing change this a.m. Performing saline wet-to-dry 3 times daily, appreciate nursing staff with assistance Patient reports decreased pain He may weight-bear as tolerated at this time, advised elevating his right foot while resting in bed. Intraoperative cultures pending. Patient receiving empiric IV antibiotics with improvement, may narrow once cultures yield further information Cultures pending. Gram stain shows gram-negative diplococci Greatly appreciate hospitalist Podiatry will follow Attestations Medical Necessity Statement*: Cellulitis and septic joint right foot Coding Level of Care Code Acute Welder Gas Automatic for [facility] Diagnoses Septic arthritis of interphalangeal joint of toe of right foot M00.9 Cellulitis of right foot L03.115 Peripheral neuropathy G61.9 Peripheral neuropathy type: inflammatory polyneuropathy, unspecified
[2022-06-23] MEDS: folic acid 1 mg Tablet PO (09:41)
[2022-06-23] MEDS: ibuprofen 600 mg Tablet PO ×2 (09:42→19:33)
[2022-06-23] MEDS: gabapentin 300 mg Capsule PO ×2 (09:42→20:29)
[2022-06-23] MEDS: multivitamin therapeutic Tablet 1 TAB PO (09:42)
[2022-06-23] MEDS: nicotine 21 mg Patch 1 PATCH TRANSDERMA (09:44)
[2022-06-23] MEDS: thiamine 100 mg Tablet PO (09:59)
--- NOTE | 2022-06-23 13:23 | PM.PN ---
Subjective Subjective: No acute events overnight. Patient states his pain is well controlled with pain regimen that he is on at this time. We are still awaiting wound cultures. Dressing change was done by Dr. Delcid this AM. Vitals/I&O/Wt Last Vital Signs Temp 98.3 F 06/23/22 12:00 Pulse 79 06/23/22 12:00 Resp 18 06/23/22 12:00 BP 138/84 06/23/22 12:00 Pulse Ox 96 06/23/22 12:00 O2 Del Method 06/23/22 12:00 O2 Flow Rate 5 06/21/22 07:25 06/22/22 06/23/22 06/23/22 22:59 06:59 14:59 Intake Total 350 / 1700 1505 / 3205 480 / 480 Output Total 650 / 2300 900 / 3200 475 / 475 Balance -300 / -600 605 / 5 Physical Exam Narrative: General: Alert oriented x3, patient seen sleeping in bed. Cachectic male, some temporal wasting noted HEENT: Normocephalic, atraumatic, EOMI, breathing normally on room air Cardio: Regular rate rhythm, normal S1-S2, Respiratory: Diminished air entry bilaterally, very mild wheezing at bases GI: Abdomen soft, nontender, nondistended, bowel sounds + Behavior: Appropriate and cooperative Extremities: Right foot covered with compression Band-Aid Data : 06/22/22 04:55 06/22/22 04:55 Micro: Microbiology 06/21/22 07:14 Gram Stain - Final Toe - #1 Wound Culture - Preliminary Coag positive Staphylococcus A&P Assessment and plan (1) Septic arthritis of interphalangeal joint of toe of right foot: Status: Acute (2) Cellulitis of right foot: Status: Acute (3) Infected wound of left foot due to nonvenomous insect bite: Status: Acute (4) Seronegative rheumatoid arthritis of both hands: Status: Acute (5) Peripheral neuropathy: Status: Acute Qualifiers: Peripheral neuropathy type: inflammatory polyneuropathy, unspecified Qualified Code(s): G61.9 - Inflammatory polyneuropathy, unspecified (6) Generalized anxiety disorder: Status: Acute Plan #Sepsis secondary to right foot cellulitis with necrotic area on fourth toe secondary to insect bite (hypotension, tachycardia, lactic acidosis) #Bilateral rheumatoid arthritis #Septic arthritis of right foot #Amphetamine abuse #Anxiety #Peripheral neuropathy #Nicotine dependence, attempting to quit #Social alcohol drinker #Immunocompromised status -Failed outpatient therapy. ? Continue gabapentin, diazepam 3 times daily as needed, hydrocodone acetaminophen 10/325, leflunomide, omeprazole, Zofran. . ? Continue IV vancomycin, IV Zosyn ? Continue DuoNeb every 4 hours scheduled ? CRP 22.3, ESR pending. CT right foot with contrast was ordered as urgent yesterday at admission but apparently did not get completed. Patient went for surgery without the CT. We will order further imaging is warranted clinically later on - Intraoperative wound cultures sent to lab. ? Thiamine, folic acid ? Placed on CIWA protocol ? Continue normal saline 125 cc/h ? Patient is status postdebridement and may require further debridement as per surgeon. Podiatry on board. Recommendations appreciated. Still awaiting wound cultures. Full code DVT prophylaxis: Heparin 5000 twice daily Attestations Medical Necessity Statement*: Awaiting culture data. Until then continue IV antiobiotics. 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
--- NOTE | 2022-06-24 | XRR_ITS ---
PROCEDURE INFORMATION: Exam: XR Right Foot Exam date and time: 06/24/2022 10:11 AM Age: 57 years old Clinical indication: Device placement; Other: Post op; Prior surgery; Surgery date: Post-operative (0-2 days) TECHNIQUE: Imaging protocol: Radiologic exam of the Right foot. Views: 3 or more views. COMPARISON: CR (FOOT AP, FOOT, FOOT AP) 06/24/2022 8:16 AM FINDINGS: Bones/joints: Similar mild irregularity of the distal aspect of the 4th middle phalanx. No acute fracture or malalignment. Mild 1st MTP joint degenerative changes. Soft tissues: Normal. XR/XR foot RT min 3V* 86284 IMPRESSION: Similar mild irregularity of the distal aspect of the 4th middle phalanx. No new findings.
[2022-06-24] MEDS: sodium chloride 0.9% 1,000 ML 100 ML IV (00:42)
[2022-06-24] MEDS: piperacillin-tazobactam 3.375 GM in sodium chloride 0.9% (plus) 50 ML IV ×3 (00:43→15:57)
[2022-06-24 04:00] VITALS: BP 153/96; PULSE 87; RESP 16; TEMP 37
[2022-06-24] MEDS: heparin 5,000 unit/mL INJ 1 mL 5000 UNIT SUBCUT ×2 (04:40→15:56)
[2022-06-24] MEDS: HYDROcodone-acetaminophen 10-325 mg Tablet 1 TAB PO (04:40)
[2022-06-24] MEDS: ibuprofen 600 mg Tablet PO (04:41)
[2022-06-24] MEDS: vancomycin 1,500 MG/300 ML PIGGYBACK 150 MG IV ×2 (05:43→18:54)
--- NOTE | 2022-06-24 07:31 | PM.PN ---
Subjective Subjective: Patient was seen bedside this morning. Denies any acute events overnight. Tolerating regular diet. Denies any fevers or chills. Reports significant decrease in pain to the right foot. He is postop day 3, day 4 of hospital admission. Awaiting sensitivities. Has been doing 3 times daily saline wet-to-dry dressing changes to the right forefoot. Patient denies any subjective nausea, vomiting, fever, chills, shortness of breath or chest pain. Vitals/I&O/Wt Last Vital Signs Temp 98.6 F 06/24/22 04:00 Pulse 87 06/24/22 04:00 Resp 16 06/24/22 04:00 BP 153/96 06/24/22 04:00 Pulse Ox 97 06/23/22 23:59 O2 Del Method 06/23/22 20:00 O2 Flow Rate 5 06/21/22 07:25 06/23/22 06/24/22 06/24/22 22:59 06:59 14:59 Intake Total 590 / 2420 1050 / 3470 Output Total 1100 / 2775 2275 / 5050 Balance -510 / -355 -1225 / -1580 Physical Exam Narrative: Patient is alert and oriented ?3 and in no acute distress.? The following is a focused bilateral lower extremity exam. VASCULAR: Dorsalis pedis and posterior tibial arteries palpable +2.? Triphasic signal appreciated with pedal Doppler at posterior tibial artery and dorsalis pedis artery of the right foot.? Capillary refill time less than 3 seconds to the distal hallux bilaterally. Calf is supple and nontender proximally and distally.? Pedal hair growth present.? Edema to the right fourth toe and dorsum of the right forefoot. NEUROLOGICAL: Epicritic and protopathic sensations grossly intact to the lower extremities.? +2 Achilles tendon reflex noted bilaterally.? Negative Tinel sign upon percussion of lower extremity nerves. DERMATOLOGICAL: Wound with incision to the dorsum of the right fourth toe extending to the dorsal aspect of the right second metatarsal phalangeal joint. Cellulitis has subsided from the line of demarcation, no purulence appreciated. No malodor or soft tissue crepitus. MUSCULOSKELETAL: Pain to palpation at the right fourth toe.? No soft tissue crepitus.? No palpable mass along the course of the plantar fascia appreciated.? No pain to palpation along the course of the bilateral Achilles tendon.? No pain to palpation along the course posterior tibial tendon or peroneal tendons.? No pain with [id number] compression of calcaneus, bilaterally.? Muscle strength is 5/5 in all 3 cardinal planes pain-free without guarding to the foot and ankle, bilaterally. Data : 06/22/22 04:55 06/22/22 04:55 Micro: Microbiology 06/21/22 07:14 Gram Stain - Final Toe - #1 Wound Culture - Preliminary Coag positive Staphylococcus A&P Assessment and plan (1) Septic arthritis of interphalangeal joint of toe of right foot: Status: Acute (2) Cellulitis of right foot: Status: Acute (3) Peripheral neuropathy: Status: Acute Qualifiers: Peripheral neuropathy type: inflammatory polyneuropathy, unspecified Qualified Code(s): G61.9 - Inflammatory polyneuropathy, unspecified Plan 3 days status post incision and debridement right fourth toe Improved cellulitis at the dorsal lateral aspect of the right foot No purulence expressed with dressing change this a.m. Continuing saline wet-to-dry 3 times daily, appreciate nursing staff with assistance He may weight-bear as tolerated at this time, advised elevating his right foot while resting in bed. Patient receiving empiric IV antibiotics with improvement, may narrow once cultures yield further information Staph species isolated, awaiting sensitivities, once sensitivities are available will formulate antibiotic discharge plan. Plan on following up in podiatry clinic next week Repeat x-ray right foot ordered Greatly appreciate hospitalist Podiatry will follow Attestations Medical Necessity Statement*: Cellulitis and septic joint right foot Coding Level of Care Code Acute Manager Corporate Responsibility for [facility] Diagnoses Septic arthritis of interphalangeal joint of toe of right foot M00.9 Cellulitis of right foot L03.115 Peripheral neuropathy G61.9 Peripheral neuropathy type: inflammatory polyneuropathy, unspecified
[2022-06-24 07:49] VITALS: BP 151/85; PULSE 82; RESP 16; TEMP 36.4; O2SAT 96
[2022-06-24] MEDS: gabapentin 300 mg Capsule PO (09:15)
[2022-06-24] MEDS: multivitamin therapeutic Tablet 1 TAB PO (09:15)
[2022-06-24] MEDS: folic acid 1 mg Tablet PO (09:16)
[2022-06-24] MEDS: nicotine 21 mg Patch 1 PATCH TRANSDERMA (09:16)
[2022-06-24] MEDS: thiamine 100 mg Tablet PO (09:16)
[2022-06-24 09:48] VITALS: PULSE 82; RESP 16; O2SAT 98
[2022-06-24 12:00] VITALS: BP 148/96; PULSE 85; RESP 18; TEMP 36.6; O2SAT 97
[2022-06-24] MEDS: acetaminophen 325 mg Tablet 650 MG PO (12:49)
--- NOTE | 2022-06-24 14:44 | PM.PN ---
Subjective Subjective: No acute events overnight. Patient states his pain is well controlled with pain regimen that he is on at this time. We are still awaiting wound cultures. Dressing change was done by Dr. Delcid this AM. Vitals/I&O/Wt Last Vital Signs Temp 97.8 F 06/24/22 12:00 Pulse 85 06/24/22 12:00 Resp 18 06/24/22 12:00 BP 148/96 06/24/22 12:00 Pulse Ox 97 06/24/22 12:00 O2 Del Method 06/24/22 09:48 O2 Flow Rate 0 06/24/22 08:00 06/23/22 06/24/22 06/24/22 22:59 06:59 14:59 Intake Total 590 / 2420 1050 / 3470 360 / 360 Output Total 1100 / 2775 2275 / 5050 1450 / 1450 Balance -510 / -355 -1225 / -1580 -1090 / -1090 Physical Exam Narrative: General: Alert oriented x3, patient seen sleeping in bed. Cachectic male, some temporal wasting noted HEENT: Normocephalic, atraumatic, EOMI, breathing normally on room air Cardio: Regular rate rhythm, normal S1-S2, Respiratory: Diminished air entry bilaterally, very mild wheezing at bases GI: Abdomen soft, nontender, nondistended, bowel sounds + Behavior: Appropriate and cooperative Extremities: Right foot covered with compression Band-Aid Data : 06/22/22 04:55 06/22/22 04:55 Micro: Microbiology 06/21/22 07:14 Gram Stain - Final Toe - #1 Wound Culture - Final Methicillin Resis Staph Aureus A&P Assessment and plan (1) Septic arthritis of interphalangeal joint of toe of right foot: Status: Acute (2) Cellulitis of right foot: Status: Acute (3) Infected wound of left foot due to nonvenomous insect bite: Status: Acute (4) Seronegative rheumatoid arthritis of both hands: Status: Acute (5) Peripheral neuropathy: Status: Acute Qualifiers: Peripheral neuropathy type: inflammatory polyneuropathy, unspecified Qualified Code(s): G61.9 - Inflammatory polyneuropathy, unspecified (6) Generalized anxiety disorder: Status: Acute Plan #Sepsis secondary to right foot cellulitis with necrotic area on fourth toe secondary to insect bite (hypotension, tachycardia, lactic acidosis) #Bilateral rheumatoid arthritis #Septic arthritis of right foot #Amphetamine abuse #Anxiety #Peripheral neuropathy #Nicotine dependence, attempting to quit #Social alcohol drinker #Immunocompromised status -Failed outpatient therapy. ? Continue gabapentin, diazepam 3 times daily as needed, hydrocodone acetaminophen 10/325, leflunomide, omeprazole, Zofran. . ? Continue IV vancomycin, IV Zosyn ? Continue DuoNeb every 4 hours scheduled ? CRP 22.3, ESR pending. CT right foot with contrast was ordered as urgent yesterday at admission but apparently did not get completed. Patient went for surgery without the CT. We will order further imaging is warranted clinically later on - Intraoperative wound cultures sent to lab. ? Thiamine, folic acid ? Placed on CIWA protocol ? Continue normal saline 125 cc/h ? Patient is status postdebridement and may require further debridement as per surgeon. Podiatry on board. Recommendations appreciated. Still awaiting wound cultures. Full code DVT prophylaxis: Heparin 5000 twice daily Attestations Medical Necessity Statement*: Awaiting culture data. Until then continue IV antiobiotics. Coding Level of Care Code Acute Director Of Strategic Partnerships for [facility] Diagnoses Septic arthritis of interphalangeal joint of toe of right foot M00.9 Cellulitis of right foot L03.115 Infected wound of left foot due to nonvenomous insect bite S90.862A; L08.9; W57.XXXA Seronegative rheumatoid arthritis of both hands M06.041; M06.042 Peripheral neuropathy G61.9 Peripheral neuropathy type: inflammatory polyneuropathy, unspecified Generalized anxiety disorder F41.1
[2022-06-24 16:00] VITALS: BP 163/92; PULSE 83; RESP 16; TEMP 36.4; O2SAT 97
--- NOTE | 2022-06-24 19:09 | PM.DCS ---
Discharge Providers Date of Admission: 06/20/22 15:23 Date of Discharge: June 24, 2022 Attending Provider at Admission: Josi Dee MD Attending Provider at Discharge: Josi Dee MD Primary Care Provider: Colby Sen MD Diagnoses at Discharge Discharge Diagnosis (1) Septic arthritis of interphalangeal joint of toe of right foot: Status: Acute (2) Cellulitis of right foot: Status: Acute (3) Infected wound of left foot due to nonvenomous insect bite: Status: Inactive (4) Seronegative rheumatoid arthritis of both hands: Status: Acute (5) Peripheral neuropathy: Status: Acute Qualifiers: Peripheral neuropathy type: inflammatory polyneuropathy, unspecified Qualified Code(s): G61.9 - Inflammatory polyneuropathy, unspecified (6) Generalized anxiety disorder: Status: Acute Reason for Visit Reason for Visit: Right foot spider bite Brief History: Jose King is a 57 year old male with past medical history of CPPD, generalized anxiety disorder, inflammatory arthritis, peripheral neuropathy, seronegative rheumatoid arthritis of both hands presented to the hospital as a direct admission from podiatry Dr. Delcid's clinic.? Patient had a bug bite on his right foot fourth toe about 1 to 2 weeks ago.? He developed a fever felt very weak and sick and developed a wound on the right fourth toe that was draining and severely painful which kept getting worse.? Patient was seen at the wound clinic and sent to the ER on 06/17.? He was placed on Levaquin 500 for 10 days.? Eventually he was seen by podiatry on 06/20 for worsening cellulitis of right foot.? Now having redness streaking across top of right foot towards ankle and increasing drainage from wound and overall worsening appearance for him and his 's report.? Pain 3 out of 10.? Also reporting some nausea, fever, chills, shortness of breath.? From there patient was sent to ER for admission for IV antibiotics and to be taken to the OR for debridement in a.m.? When I evaluated patient at bedside he seemed to be somewhat of a poor historian.? He denied any nausea vomiting shortness of breath at this time however did report some subjective fever and chills.? He states he is not sure what bit him. On arrival lactic acid 2.4, blood pressure 94/61, pulse 117.? CT right foot with contrast ordered.? Patient given 30 mill per KG normal saline for sepsis bolus.? Also placed on normal saline 125 cc/h.? CRP 22.? ESR pending.? Blood cultures ordered.? Urine drug screen positive for amphetamines, opioids, benzodiazepines, marijuana. Dr. Delcid consulted for debridement. Hospital Course Hospital Course Patient was admitted for sepsis secondary to right foot cellulitis with necrotic area and possibly secondary to insect bite. Patient failed outpatient therapy. He was placed on IV vancomycin and IV Zosyn. CT foot was also ordered prior to surgical debridement however it could not get done for unknown reasons. Patient also had a history of alcohol abuse was placed on CIWA protocol. He was also positive for methamphetamine, marijuana, opiates and benzos at this admission. Wound cultures grew MRSA. Patient was discharged home on oral antibiotics to follow-up with podiatry as an outpatient and referred to wound clinic. Dr. Delcid will continue to follow the patient. Patient demonstrated understanding and will be discharged home in stable condition. All questions answered. Physical Exam Narrative: General: Alert oriented x3, patient seen sleeping in bed.? Cachectic male, some temporal wasting noted HEENT: Normocephalic, atraumatic, EOMI, breathing normally on room air Cardio: Regular rate rhythm, normal S1-S2, Respiratory: Diminished air entry bilaterally, clear to auscultation today GI: Abdomen soft, nontender, nondistended, bowel sounds + Behavior: Appropriate and cooperative Extremities: Right foot covered with compression Band-Aid Discharge Data Studies Completed and Pending Completed Studies During Hospitalization Category Date Time Status XR chest 1V portable 10607 Stat Exams 06/20/22 15:22 Completed XR foot RT min 3V* [id number] Routine Exams 06/24/22 Completed Pending at discharge Category Date Time Status Blood Culture Stat Lab 06/20/22 16:20 Results Radiology Impressions Chest X-Ray 06/20/22 15:22 Impression: Hyperinflation. Foot X-Ray 06/24/22 00:00 IMPRESSION: Similar mild irregularity of the distal aspect of the 4th middle phalanx. No new findings. Laboratory Results WBC 6.3 10^3/uL (4.0-10.0) 06/22/22 04:55 RBC 4.10 10^6/uL (4.1-5.3) 06/22/22 04:55 Hgb 12.3 g/dL (11.7-16.6) 06/22/22 04:55 Hct 38.7 % (42.0-52.0) L 06/22/22 04:55 MCV 94.4 fl (80-94) H 06/22/22 04:55 MCH 30.0 pg (28.0-34.0) 06/22/22 04:55 MCHC 31.8 g/dL (30.0-36.0) 06/22/22 04:55 RDW 12.7 % (12.1-15.1) 06/22/22 04:55 Plt Count 317 10^3/cmm (130-400) 06/22/22 04:55 MPV 9.1 fL (7.4-10.4) 06/22/22 04:55 Neut % (Auto) 55.7 % 06/22/22 04:55 Lymph % (Auto) 21.9 % 06/22/22 04:55 [place] % (Auto) 14.0 % 06/22/22 04:55 Eos % (Auto) 7.3 % 06/22/22 04:55 Baso % (Auto) 0.8 % 06/22/22 04:55 Neut # (Auto) 3.51 10^3/uL (1.8-7.7) 06/22/22 04:55 Lymph # (Auto) 1.4 10^3/uL (0.8-4.8) 06/22/22 04:55 Stephen[place] # (Auto) 0.9 10^3/uL (0.2-0.9) 06/22/22 04:55 Eos # (Auto) 0.5 10^3/uL (0.0-0.8) 06/22/22 04:55 Baso # (Auto) 0.1 10^3/uL (0.0-0.1) 06/22/22 04:55 Nucleated RBC % (auto) 0 % 06/22/22 04:55 Nucleated RBCs # 0.0 /100WBC 06/22/22 04:55 ESR Cancelled 06/20/22 14:48 Sodium 140 mmol/L (136-145) 06/22/22 04:55 Potassium 4.3 mmol/L (3.5-5.1) 06/22/22 04:55 Chloride 106 mmol/L (98-107) 06/22/22 04:55 Carbon Dioxide 27 mmol/L (22-29) 06/22/22 04:55 Anion Gap 11.3 (5-19) 06/22/22 04:55 BUN 9 mg/dL (6-20) 06/22/22 04:55 Creatinine 0.5 mg/dL (0.7-1.2) L 06/22/22 04:55 GFR Calculation 172.0 mL/min (90-130) H 06/22/22 04:55 Glucose 101 mg/dL (65-115) 06/22/22 04:55 Estimat Average Glucose 131 06/20/22 14:48 Hemoglobin A1c 6.2 % (4.0-6.0) H 06/20/22 14:48 Calculated Osmolality 289 mOsm/kg (285-295) 06/22/22 04:55 Lactic Acid 1.2 mmol/L (0.5-2.2) 06/20/22 17:23 Calcium 8.8 mg/dL (8.5-10.5) 06/22/22 04:55 Magnesium 1.8 mg/dL (1.7-2.3) 06/21/22 04:22 Total Bilirubin 0.4 mg/dL (0.15-1.2) 06/21/22 04:22 AST 28 U/L (0-40) 06/21/22 04:22 ALT 17 U/L (0-41) 06/21/22 04:22 Alkaline Phosphatase 88 U/L (40-130) 06/21/22 04:22 C-Reactive Protein 22.3 mg/L (0.0-4.9) H 06/20/22 14:48 Total Protein 5.7 g/dL (6.6-8.7) L 06/21/22 04:22 Albumin 3.3 g/dL (3.5-5.2) L 06/21/22 04:22 Globulin 2.4 g/dL (1.3-4.6) 06/21/22 04:22 Triglycerides 147 mg/dL (0-150) 06/20/22 14:48 Cholesterol 147 mg/dL (0-200) 06/20/22 14:48 LDL Cholesterol, Calc 68 mg/dL (50-129) 06/20/22 14:48 HDL Cholesterol 50 mg/dL (60-100) L 06/20/22 14:48 LDL/HDL Ratio 1.36 RATIO (0.00-3.22) 06/20/22 14:48 Cholesterol/HDL Ratio 2.94 mg/dL (1.0-5.00) 06/20/22 14:48 Procalcitonin 0.06 ng/mL (0-0.5) 06/20/22 14:48 Urine Color Yellow (Yellow) 06/20/22 17:34 Urine Appearance Clear (CLEAR) 06/20/22 17:34 Urine pH 5 (5-7) 06/20/22 17:34 Ur Specific [place] 1.020 (1.005-1.030) 06/20/22 17:34 Urine Protein Neg (Negative) 06/20/22 17:34 Urine Glucose (UA) Norm (Normal) 06/20/22 17:34 Urine Ketones Negative (Negative) 06/20/22 17:34 Urine Blood Neg (Negative) 06/20/22 17:34 Urine Nitrate Negative (Negative) 06/20/22 17:34 Urine Bilirubin Neg (Negative) 06/20/22 17:34 Urine Urobilinogen Norm mg/dL (Negative) 06/20/22 17:34 Ur Leukocyte Esterase Negative (Negative) 06/20/22 17:34 Vancomycin Trough 15.3 ug/mL (10-15) H 06/22/22 04:55 Urine Opiates Screen Positive ng/mL (Negative) H 06/20/22 17:34 Ur Barbiturates Screen Negative ng/mL (Negative) 06/20/22 17:34 Ur Phencyclidine Scrn Negative ng/mL (Negative) 06/20/22 17:34 Ur Amphetamines Screen Positive ng/mL (Negative) H 06/20/22 17:34 U Benzodiazepines Scrn Positive ng/mL (Negative) H 06/20/22 17:34 Urine Cocaine Screen Negative ng/mL (Negative) 06/20/22 17:34 U Marijuana (THC) Screen Positive ng/mL (Negative) H 06/20/22 17:34 Ethyl Alcohol < 10 mg/dL (0-10) 06/20/22 14:48 Vitals Last Vital Signs Temp 97.6 F 06/24/22 16:00 Pulse 83 06/24/22 16:00 Resp 16 06/24/22 16:00 BP 163/92 06/24/22 16:00 Pulse Ox 97 06/24/22 16:00 O2 Del Method 06/24/22 16:00 O2 Flow Rate 0 06/24/22 08:00 Discharge Plan Discharge Patient Disposition: Home Condition: Stable Prescriptions: New folic acid 1 mg Tablet 1 mg PO DAILY 30 Days Qty: 30 0RF Vitamin B-1 (mononitrate) 100 mg Tablet 100 mg PO DAILY 30 Days Qty: 30 0RF doxycycline hyclate 100 mg capsule 100 mg PO BID 14 Days Qty: 28 0RF amoxicillin-pot clavulanate 875-125 mg tablet 1 tab PO BID 14 Days Qty: 28 0RF Continued hydrocodone-acetaminophen 10-325 mg tablet 1 tab PO BID PRN (Reason: pain) 30 Days Qty: 60 0RF leflunomide 20 mg tablet 20 mg PO DAILY Qty: 30 3RF ergocalciferol (vitamin D2) [Vitamin D2] 1,250 mcg (50,000 unit) capsule 1,250 mcg PO DAILY Qty: 15 0RF diazepam 5 mg tablet 5 mg PO TID PRN (Reason: anxiety) 30 Days Qty: 65 4RF gabapentin 300 mg capsule 300 mg PO BID ibuprofen 600 mg tablet 600 mg PO TID PRN (Reason: Pain) varenicline 1 mg tablet 1 mg PO BID Discontinued levofloxacin 500 mg tablet 500 mg PO DAILY 10 Days Qty: 10 0RF No Action mupirocin 2 % ointment 1 applic topical BID Qty: 22 0RF Discharge Orders: Discharge Order (Routine); Ordered 06/24/22 Ordered By: Josi Dee Referrals: Colby Sen MD [Primary Care Provider] - 4-7 days Tobi Delcid DPM [Physician] - 7-10 days WOUND [facility]ARE CL[facility], [Staff Physician] - 4-7 days Discharge Diet: Regular Discharge Activity: Increase activity as tolerated Patient Instructions: Cellulitis, Doxycycline (By mouth), Thiamine (By mouth), Amoxicillin (By mouth), Folic Acid (By mouth), Opioid Safety Activity Restrictions/Additional Instructions: Please return to ER if your symptoms worsen or new symptoms develop such has fever, swelling, chills, increase drainage from wound. Follow up with Dr. Delcid in his clinic as well as the wound care clinic. Discharge Attestations Time Spent in Discharge Care*: less than 30 min Quality Metrics Clinical Quality Measures [ No reported AMI, CVA or VTE this stay] Coding Level of Care Code Acute g FW IN note Diagnoses Septic arthritis of interphalangeal joint of toe of right foot M00.9 Cellulitis of right foot L03.115 Infected wound of left foot due to nonvenomous insect bite S90.862A; L08.9; W57.XXXA Seronegative rheumatoid arthritis of both hands M06.041; M06.042 Peripheral neuropathy G61.9 Peripheral neuropathy type: inflammatory polyneuropathy, unspecified Generalized anxiety disorder F41.1
[2022-06-24 20:00] VITALS: BP 179/81; PULSE 84; PULSE 94; RESP 16; RESP 18; TEMP 36.6; O2SAT 97; O2SAT 98
--- NOTE | 2022-06-24 22:31 | PC.NURSE ---
Patient discharged to home at 2230, accompanied by spouse. Patient left unit via wheelchair with wound care supplies and belongings. Patient given discharge instructions and verbalized understanding. Prescriptions sent to pharmacy.
== END 2022-06-24 22:30 | disposition home or self-care (01) | DRG 854 ==
LOC: ER 14:42 → MEDSURG 17:20
PROVIDERS: Podiatrist Foot & Ankle Surgery; Admitting Provider Internal Medicine; Emergency Provider Physician Assistant; PCP Family Medicine; Visit Provider Internal Medicine
PROC: 0SBM0ZZ Excision of Right Metatarsal-Phalangeal Joint, Open Approach (ICD-10-PCS; principal; 2022-06-21 07:00)
DX: A41.9 Sepsis, unspecified organism (principal); L03.115 Cellulitis of right lower limb; M00.071 Staphylococcal arthritis, right ankle and foot; B95.62 Methicillin resistant Staphylococcus aureus infection as the cause of diseases classified elsewhere; Z98.1 Arthrodesis status; M10.9 Gout, unspecified; F41.1 Generalized anxiety disorder; G61.9 Inflammatory polyneuropathy, unspecified; M06.042 Rheumatoid arthritis without rheumatoid factor, left hand; M06.041 Rheumatoid arthritis without rheumatoid factor, right hand; F17.210 Nicotine dependence, cigarettes, uncomplicated; F15.10 Other stimulant abuse, uncomplicated; F12.90 Cannabis use, unspecified, uncomplicated; J44.9 Chronic obstructive pulmonary disease, unspecified; F10.10 Alcohol abuse, uncomplicated; Z79.891 Long term (current) use of opiate analgesic; I95.9 Hypotension, unspecified
CPT/HCPCS: 36415; 71045; 73630; 80048; 80053; 80061; 80202; 80306; 80307; 81003; 83036; 83605; 83735; 84145; 85025; 86140; 87040; 87070; 87075; 87077; 87186; 87205; 93005; 94640; 94664; 96365; 96367; 96372; 96375; 99285; J1644; J2060; J2250; J2270; J2405; J2543; J2704; J3010; J3370; J3411; J3490; J7030

== ENCOUNTER → 2022-06-28 11:59 | Outpatient (BNVA) | payer MEDICAID, SELFPAY | PROVIDERS: PCP Family Medicine; Visit Provider Podiatrist Foot & Ankle Surgery | DX: L03.115 Cellulitis of right lower limb (principal); M00.9 Pyogenic arthritis, unspecified; W57.XXXA Bitten or stung by nonvenomous insect and other nonvenomous arthropods, initial encounter | CPT/HCPCS: 99213; 99214 ==

== ENCOUNTER → 2022-07-04 15:46 | Outpatient (BNVA) | payer MEDICAID, SELFPAY | PROVIDERS: PCP Family Medicine; Visit Provider Podiatrist Foot & Ankle Surgery | DX: L03.115 Cellulitis of right lower limb (principal); M00.9 Pyogenic arthritis, unspecified; S90.861D Insect bite (nonvenomous), right foot, subsequent encounter; W57.XXXD Bitten or stung by nonvenomous insect and other nonvenomous arthropods, subsequent encounter | CPT/HCPCS: 99214 ==

== ENCOUNTER → 2022-07-15 13:55 | Outpatient (BNVA) | payer MEDICAID, SELFPAY | PROVIDERS: PCP Family Medicine; Visit Provider Podiatrist Foot & Ankle Surgery | DX: L03.115 Cellulitis of right lower limb (principal); M00.9 Pyogenic arthritis, unspecified; W57.XXXA Bitten or stung by nonvenomous insect and other nonvenomous arthropods, initial encounter | CPT/HCPCS: 99214 ==

== ENCOUNTER → 2022-08-05 15:29 | Outpatient (BNVA) | payer MEDICAID, SELFPAY | PROVIDERS: PCP Family Medicine; Visit Provider Podiatrist Foot & Ankle Surgery | DX: M00.9 Pyogenic arthritis, unspecified (principal); L03.115 Cellulitis of right lower limb; W57.XXXA Bitten or stung by nonvenomous insect and other nonvenomous arthropods, initial encounter | CPT/HCPCS: 73630; 99213 ==

== ENCOUNTER → 2023-01-07 15:28 | Outpatient (BNVA) | payer MEDICAID, SELFPAY | PROVIDERS: PCP Family Medicine; Visit Provider Podiatrist Foot & Ankle Surgery | DX: L03.116 Cellulitis of left lower limb (principal); L97.822 Non-pressure chronic ulcer of other part of left lower leg with fat layer exposed; S80.262A Insect bite (nonvenomous), left knee, initial encounter; W57.XXXA Bitten or stung by nonvenomous insect and other nonvenomous arthropods, initial encounter | CPT/HCPCS: 99214 ==

== ENCOUNTER → 2023-01-09 15:09 | Outpatient (BNVA) | payer MEDICAID, SELFPAY | PROVIDERS: PCP Family Medicine; Visit Provider Specialist | DX: G24.3 Spasmodic torticollis (principal) | CPT/HCPCS: 64616; J0585 ==

== ENCOUNTER → 2023-01-10 13:27 | Outpatient (BNVA) | payer MEDICAID, SELFPAY | PROVIDERS: PCP Family Medicine; Visit Provider Podiatrist Foot & Ankle Surgery | DX: S90.862D Insect bite (nonvenomous), left foot, subsequent encounter (principal); W57.XXXD Bitten or stung by nonvenomous insect and other nonvenomous arthropods, subsequent encounter; L03.116 Cellulitis of left lower limb | CPT/HCPCS: 99213 ==

== ENCOUNTER → 2023-01-16 14:45 | Outpatient (BNVA) | payer MEDICAID, SELFPAY | PROVIDERS: PCP Family Medicine; Visit Provider Podiatrist Foot & Ankle Surgery | DX: L03.116 Cellulitis of left lower limb (principal) | CPT/HCPCS: 99213 ==

== ENCOUNTER → 2023-04-24 15:16 | Outpatient (BNVA) | payer MEDICAID, SELFPAY | PROVIDERS: PCP Family Medicine; Visit Provider Specialist | DX: G24.3 Spasmodic torticollis (principal); Z98.1 Arthrodesis status; F41.1 Generalized anxiety disorder; F40.231 Fear of injections and transfusions | CPT/HCPCS: 64616; 96372; 99213; J0585; J1885 ==

== ENCOUNTER 2024-06-19 03:03 | Emergency (ER) | payer MEDICAID, SELFPAY ==
[2024-06-19 03:14] VITALS: BP 173/100; PULSE 100; RESP 18; TEMP 36.3; O2SAT 98; BMI 21.1
--- NOTE | 2024-06-19 03:22 | W.ED.EXTPRO ---
HPI - Extremity Problem General: Chief complaint: Extremity Injury, Upper Stated complaint: Left Shoulder Pain Time Seen by Provider: 06/19/24 03:07 History of Present Illness: Patient presents to the ER complaining of worsening right chronic shoulder pain is made worse after he seen a massage therapist. This is chronic in nature. Patient is prescribed hydrocodone and diazepam for this. Patient is had no new acute injury this just flared up on its own. Hurts worse to move his shoulder. The pain is in the posterior scapular region. Related Data Previous Rx's Medication Instructions Recorded ergocalciferol (vitamin D2) 1,250 1,250 mcg PO DAILY #15 caps 10/29/21 mcg (50,000 unit) capsule (Vitamin D2) mupirocin 2 % topical ointment 1 applic topical BID #22 grams 06/28/22 ibuprofen 600 mg tablet See Rx Instructions .Route 10/29/23 .COMPLEX #75 tabs diazepam 5 mg tablet 5 mg PO TID PRN anxiety 30 days 04/12/24 #65 tabs hydrocodone 7.5 mg-acetaminophen 1 tab PO Q8H PRN pain 30 days #80 06/10/24 325 mg tablet tabs Allergies Allergy/AdvReac Type Severity Reaction Status Date / Time codeine Allergy nausea Verified 12/29/23 09:01 Review of Systems General: Reports: 10 or more systems reviewed and unremarkable except in HPI and below PFSH ED PFSH: Medical History Calcium pyrophosphate deposition disease (CPPD) Seronegative rheumatoid arthritis of both hands Immunization counseling High risk medication use Inflammatory arthritis Peripheral neuropathy Generalized anxiety disorder Bilateral hand pain Cervical disc disorder with radiculopathy, cervicothoracic region Surgical History History of fusion of cervical spine C2-C3 ACDFF, [facility], 03/09/2001; C2-C6 posterior fusion/fixation, [facility], 04/01/2014 History of carpal tunnel release Open release of the median nerve at the right wrist, 08/23/2019, [facility] Family History Father Stroke Denies family history of Rheumatoid arthritis Diabetes Lupus Lung disease Cancer Hypertension Social History (Reviewed 09/14/24 @ 03:23 by AB Oneill Smoking and tobacco/nicotine status: current every day tobacco/nicotine user cigarettes [ Other cigarette details: using chantix to try to quit at this time] and cigars Quit status (tobacco/nicotine): has tried quititng Alcohol intake: current Alcohol intake frequency: few times a week Substance/Drug Use: never Household members: none Marital status: Current occupational status: disabled Physical Exam Const: COMMON NORMALS: no acute distress, average body habitus, patient oriented x3, no limitations, healthy appearing, alert and well nourished HENMT: COMMON NORMALS: normocephalic, atraumatic, hearing grossly normal bilaterally, external ears normal, Normal external nose present and moist oral mucous membranes HEAD & SCALP: normocephalic and atraumatic NOSE: Normal external nose present EXTERNAL EAR: Yes external ears normal Neck/C-Spine: COMMON NORMALS: full ROM, no lymphadenopathy, supple, no meningeal signs and no JVD Chest: COMMONS NORMALS: normal inspection of the chest and normal palpation of entire chest wall Resp: COMMON NORMALS: normal respiratory effort, No retractions, No use of accessory muscles and clear to auscultation bilaterally AUSCULTATION: clear to auscultation bilaterally Cardio: COMMON NORMALS: no JVD, regular rate, regular rhythm, S1 normal heart sound present, S2 normal heart sound present, No gallops present (Cardio), No clicks present (Cardio), No murmurs present (Cardio) and No rub (Cardio) RATE: regular rate RHYTHM: regular rhythm HEART SOUNDS: S1 normal heart sound present and S2 normal heart sound present GI: COMMON NORMALS: Normal to inspection, nondistended, normoactive bowel sounds present, Soft to palpation, non-tender, No hepatosplenomegaly present and no masses PALPATION: Yes Soft to palpation and Yes No hepatosplenomegaly present Back/Pelvis: OTHER: Pain with palpation over right-sided thoracic paraspinal musculature into scapular musculature region. Muscles are fibrotic and ropey feeling. No obvious crepitus or deformity. Neuro: COMMON NORMALS: patient oriented x3 SENSORIUM/ORIENTATION: Yes alert MENINGEAL SIGNS: Yes no meningeal signs Course Vital Signs: Vital signs: Vital Signs Temperature 97.3 F L 06/19/24 03:14 Pulse Rate 100 06/19/24 03:14 Respiratory Rate 18 06/19/24 03:14 Blood Pressure 173/100 06/19/24 03:14 Pulse Oximetry 98 06/19/24 03:14 Oxygen Delivery Me thod Aerosol Mask 06/19/24 03:14 MDM - Extremity (Nontraumatic) Medical Decision Making Patient was given Toradol 60 mg Norflex 60 mg, patient be discharged home. To follow-up with his primary care for his chronic pain. Medical Records I reviewed the patient's medical records. Lab Data I reviewed the patient's lab results. No radiology studies performed this visit Discharge Plan Discharge Patient Disposition: Home Clinical Impression: Chronic pain in right shoulder, Musculoskeletal pain of right upper extremity Condition: Stable Prescriptions: No Action mupirocin 2 % ointment 1 applic topical BID Qty: 22 0RF ergocalciferol (vitamin D2) [Vitamin D2] 1,250 mcg (50,000 unit) capsule 1,250 mcg PO DAILY Qty: 15 0RF ibuprofen 600 mg tablet See Rx Instructions .ROUTE .COMPLEX Qty: 75 5RF Dose Instruction: TAKE 1 TABLET BY MOUTH THREE TIMES DAILY NEEDED FOR PAIN FOR 30 DAYS Rx Instructions: TAKE 1 TABLET BY MOUTH THREE TIMES DAILY NEEDED FOR PAIN FOR 30 DAYS diazepam 5 mg tablet 5 mg PO TID PRN (Reason: anxiety) 30 Days Qty: 65 4RF hydrocodone-acetaminophen 7.5-325 mg tablet 1 tab PO Q8H PRN (Reason: pain) 30 Days Qty: 80 0RF Discharge Orders: Discharge ED (Routine); Ordered 06/19/24 Ordered By: Herb Leon Referrals: Colby Sen MD [Primary Care Provider] - 1 week Patient Instructions: Musculoskeletal Pain (ED), Shoulder Pain (ED) Activity Restrictions/Additional Instructions: You are seen in the ER for an acute flareup of your chronic right shoulder pain. You were given pain medicine, muscle relaxer, and a steroid, please follow-up with your family practice physician for acute exacerbation of your chronic pain. Thank you for choosing [facility] for your healthcare needs today. Please realize that you were seen in the emergency department and that we are providing you with an emergency medical screening exam and this may not be a complete and all exclusive of all testing and/or medical workup we may need to determine your element or severity of your illness. It is very important that you follow-up as instructed with your primary care provider or specialist for the additional evaluation and to discuss your medical treatment plan. You may return to the emergency department should you have concerns or if your condition changes or worsens in any way. Coding Level of Care Code ED Records Officer for Chris Childs
[2024-06-19] MEDS: dexamethasone 10 mg/mL INJ IM (03:44)
[2024-06-19] MEDS: orphenadrine 30 mg/mL Inj 2 mL 60 MG IM (03:52)
[2024-06-19] MEDS: ketorolac 60 mg/2 mL INJ IM (03:53)
[2024-06-19 04:00] VITALS: BP 144/93; PULSE 89; O2SAT 97
[2024-06-19 04:31] VITALS: BP 143/90; PULSE 93; O2SAT 97
== END 2024-06-19 04:31 | disposition home or self-care (01) ==
PROVIDERS: Emergency Provider Emergency Medicine; PCP Family Medicine
DX: G89.29 Other chronic pain (principal); M25.511 Pain in right shoulder; F17.210 Nicotine dependence, cigarettes, uncomplicated; F17.290 Nicotine dependence, other tobacco product, uncomplicated
CPT/HCPCS: 96372; 99284; J1100; J1885; J2360

== ENCOUNTER → 2024-10-21 09:45 | Outpatient (BNVA) | payer MEDICAID, SELFPAY | PROVIDERS: PCP Family Medicine; Visit Provider Specialist | DX: G24.3 Spasmodic torticollis (principal); Z98.1 Arthrodesis status; F41.1 Generalized anxiety disorder | CPT/HCPCS: 99214 ==

== ENCOUNTER → 2024-11-12 12:42 | Outpatient (BNVA) | payer MEDICAID, SELFPAY | PROVIDERS: PCP Family Medicine; Visit Provider Specialist | DX: G24.3 Spasmodic torticollis (principal) | CPT/HCPCS: 64616; J0585 ==

== ENCOUNTER → 2024-11-18 10:48 | Outpatient (BNVA) | payer MEDICAID, SELFPAY | PROVIDERS: PCP Family Medicine; Referring Provider Specialist; Visit Provider Specialist | DX: G56.03 Carpal tunnel syndrome, bilateral upper limbs (principal); M79.641 Pain in right hand; M79.642 Pain in left hand; Z98.1 Arthrodesis status; G24.3 Spasmodic torticollis | CPT/HCPCS: 95910 ==

== ENCOUNTER → 2025-01-19 11:03 | Outpatient (BNVA) | payer MEDICAID, SELFPAY | PROVIDERS: PCP Family Medicine; Visit Provider Student in an Organized Health Care Education/Training Program | DX: G56.03 Carpal tunnel syndrome, bilateral upper limbs (principal) | CPT/HCPCS: 20600; 20605; 99204; J3301; J3490 ==

== ENCOUNTER → 2025-02-11 09:48 | Outpatient (BNVA) | payer MEDICAID, SELFPAY | PROVIDERS: PCP Family Medicine; Visit Provider Specialist | DX: G24.3 Spasmodic torticollis (principal) | CPT/HCPCS: 64616; J0585; J9999 ==

== ENCOUNTER → 2025-04-27 10:31 | Outpatient (BNVA) | payer MEDICAID, SELFPAY | PROVIDERS: PCP Family Medicine; Visit Provider Student in an Organized Health Care Education/Training Program | DX: M79.642 Pain in left hand (principal); G56.03 Carpal tunnel syndrome, bilateral upper limbs | CPT/HCPCS: 73130; 99214 ==

== ENCOUNTER → 2025-05-26 09:53 | Outpatient (BNVA) | payer MEDICAID, SELFPAY | PROVIDERS: PCP Family Medicine; Visit Provider Specialist | DX: G24.3 Spasmodic torticollis (principal) | CPT/HCPCS: 64616; J0585; J9999 ==

== ENCOUNTER 2025-06-09 05:50 | Day surgery (SDC) | payer MEDICAID, SELFPAY ==
[2025-06-09] VITALS (7 sets, daily range): BP systolic 122–163; BP diastolic 80–109; PULSE 84–104; RESP 16–18; TEMP 36.3–36.8; O2SAT 96–99; BMI 20.3
[2025-06-09] MEDS: acetaminophen 1,000 MG/100 ML PIGGYBACK 400 MG IV (06:22)
--- NOTE | 2025-06-09 06:40 | ANES.PREANE2 ---
Pre-Anesthetic Assessment Height/Weight: Height 1.7 m Weight 58.967 kg Temp Pulse Resp BP Pulse Ox O2 Del Method 97.3 F L 104 H 18 163/109 99 Room Air 06/09/25 06:03 06/09/25 06:03 06/09/25 06:03 06/09/25 06:03 06/09/25 06:03 06/09/25 06:10 Operation Date: 06/09/25 07:00 Proposed Procedures p Carpal Tunnel Release(Left) - Maximilian Harrison DO Familial anesthetic complications: none Was Beta Jose taken within 24 hours: N/A Was Clonidine taken within 24 hours: N/A Last intake: Intake Last Liquid Date 06/08/25 Last Liquid Time 23:00 Last Solid Date 06/08/25 Last Solid Time 21:30 Social No alcohol and No tobacco Exam alert, oriented x 3, clear to auscultation bilaterally and regular rate & rhythm Airway Dentition: other (missing teeth) Comments: Comments: limited neck extension - prior surgery Musc/sk Rheumatoid Arthritis Anesthetic Plan ASA status: 2 Anesthesia: MAC Risk of > 500 ml blood loss (7ml/kg in children): No Medications/Allergies Home Medications ?Medication ?Instructions ?Recorded ?Confirmed ?Last Taken ?Type bilateral wrist braces #1 ea 01/19/25 05/26/25 Unknown Rx diazepam 5 mg tablet 5 mg PO TID PRN anxiety 30 days 02/08/25 06/09/25 06/08/25 Rx #65 tabs ibuprofen 600 mg tablet See Rx Instructions .Route 02/08/25 06/09/25 Unknown Rx .COMPLEX #75 tabs hydrocodone 7.5 mg-acetaminophen 1 tab PO Q8H PRN pain 30 days #80 05/12/25 06/09/25 06/08/25 Rx 325 mg tablet tabs Allergies Allergy/AdvReac Type Severity Reaction Status Date / Time codeine Allergy nausea Verified 05/26/25 09:55 Current Medications Generic Name Dose Route Start Last Admin Trade Name Freq PRN Reason Stop Dose Admin Sodium Chloride 1,000 mls @ 30 mls/hr 06/09/25 06:00 06/09/25 06:21 Sodium Chloride 0.9% IV 06/10/25 05:59 30 mls/hr .Q24H FLAQUITO Administration PFSH Anesthesia Medical History Calcium pyrophosphate deposition disease (CPPD) Seronegative rheumatoid arthritis of both hands Immunization counseling High risk medication use Inflammatory arthritis Peripheral neuropathy Generalized anxiety disorder Bilateral hand pain Cervical disc disorder with radiculopathy, cervicothoracic region Surgical History History of fusion of cervical spine C2-C3 ACDFF, [facility], 03/09/2001; C2-C6 posterior fusion/fixation, [facility], 04/01/2014 History of carpal tunnel release Open release of the median nerve at the right wrist, 08/23/2019, [facility] Family History Father Stroke Denies family history of Rheumatoid arthritis Diabetes Lupus Lung disease Cancer Hypertension Social History Smoking and tobacco/nicotine status: current every day tobacco/nicotine user (1/2 PPD) cigarettes [ Other cigarette details: using chantix to try to quit at this time] and cigars Quit status (tobacco/nicotine): has tried quititng Alcohol intake: current Alcohol intake frequency: few times a week Substance/Drug Use: never Household members: none Marital status: Current occupational status: disabled
--- NOTE | 2025-06-09 07:00 | W.PM.OPSFHP ---
Same Day Surgery H&P Indication for Procedure/HPI DATE OF PROCEDURE: June 09, 2025 CHIEF COMPLAINT/INDICATIONFOR SURGICAL PROCEDURE: Left carpal tunnel syndrome PREOP DIAGNOSIS: Left carpal tunnel syndrome PLANNED PROCEDURE: Operation Date: 06/09/25 07:00 Proposed Procedures p Carpal Tunnel Release(Left) - Maximilian Harrison DO Medications/Allergies* Allergies/Adverse Reactions Allergy/AdvReac Type Severity Reaction Status Date / Time codeine Allergy nausea Verified 05/26/25 09:55 Current Medications: Generic Name Dose Route Start Last Admin Trade Name Freq PRN Reason Stop Dose Admin Sodium Chloride 1,000 mls @ 30 mls/hr 06/09/25 06:00 06/09/25 06:21 Sodium Chloride 0.9% IV 06/10/25 05:59 30 mls/hr .Q24H FLAQUITO Administration Pertinent History/Comorbid Conditions* Medical History (Updated 11/23/24 @ 14:11 by Zaria Jameson MD) Calcium pyrophosphate deposition disease (CPPD) Seronegative rheumatoid arthritis of both hands Immunization counseling High risk medication use Inflammatory arthritis Peripheral neuropathy Generalized anxiety disorder Bilateral hand pain Cervical disc disorder with radiculopathy, cervicothoracic region Surgical History (Updated 01/12/20 @ 10:31 by Tino Kaplan MD) History of fusion of cervical spine C2-C3 ACDFF, [facility], 03/09/2001; C2-C6 posterior fusion/fixation, [facility], 04/01/2014 History of carpal tunnel release Open release of the median nerve at the right wrist, 08/23/2019, [facility] Family History (Updated 10/16/21 @ 09:02 by Leslie Posada LPN) Stroke Father Denies family history of Rheumatoid arthritis Diabetes Lupus Lung disease Cancer Hypertension Social History Smoking and tobacco/nicotine status: current every day tobacco/nicotine user (1/2 PPD) cigarettes [ Other cigarette details: using chantix to try to quit at this time] and cigars Quit status (tobacco/nicotine): has tried quititng Alcohol intake: current Alcohol intake frequency: few times a week Substance/Drug Use: never Household members: none Marital status: Current occupational status: disabled Pertinent Exam Findings alert, oriented x 3, operative site marked and procedure specific exam findings Please refer to detailed orthopedic examination on 04/27/2025 listed below: Bilateral Carpal Tunnel Exam: Normal C-spine ROM No pain. Negative Spurlings Negative Tinels @ shoulder. Normal ROM Normal ROM elbow. Negative Tinels @ elbow, bilaterally Positive median compression test left Mildly Positive Tinels left Positive Phalens left Thenar weakness , Subtle atrophy noted bilaterally Good intrinsic strength, no atrophy noted bilaterally. Mild CMC TTP Bilaterally. Negative Grind test. Recommendations Risks and benefits of procedure reviewed and Patient/family agree to proceed Surgery/Procedure today Other Plans: Plan to proceed to the OR today for left carpal tunnel release. Patient understands the incidence procedure risk benefits complication alternatives of surgery and through shared decision making patient like to proceed with surgical invention. All questions answered. Coding Level of Care Code Acute Code for Chg Fwd
[2025-06-09] MEDS: ceFAZolin 2,000 MG in sodium chloride 0.9% (plus) 50 ML 100 MG IV (07:01)
[2025-06-09] MEDS: ROPivacaine 0.5% SDV 30 mL 25 MG INJECTION (07:18)
[2025-06-09] MEDS: lidocaine-epi 1% 20 mL INJ 5 ML INJECTION (07:18)
--- NOTE | 2025-06-09 07:47 | P.BOP_ITS ---
Date of Procedure: 06/09/25 Surgeon: Maximilian Harrison DO Residential Living Assistant(s): None Procedure(s) performed: Left carpal tunnel release Findings of the procedure(s): Patient underwent procedure as planned without issues or complications taken recovery in stable condition Estimated blood loss: 3mL Specimen(s) removed: None Post-operative diagnosis: Left carpal tunnel syndrome
--- NOTE | 2025-06-09 07:48 | P.OP_ITS ---
Operative Report Date of procedure: June 09, 2025 Surgeon: Maximilian Harrison DO Procedure: Preop Diagnosis: Left Carpal Tunnel Syndrome Post-op diagnosis: Same Procedure done: 1. Left carpal tunnel release Surgeon: Maximilian Harrison DO Anesthesia: MAC (Local) Estimated blood loss: 3 mL Tourniquet time 7 minutes IV fluids: See anesthesia record Complications: None Findings: See operative report narrative Condition: stable Disposition: same day Brief History: Patient is a pleasant 60 year-old male with left carpal tunnel syndrome. Patient has been worked up in the outpatient setting findings and physical examination consistent with this. Patient nerve conduction studies consistent with carpal tunnel syndrome. We detailed out patient's risk benefits complication alternatives with surgical and nonsurgical treatment options. Through shared decision making, patient agrees to proceed with surgical intervention of the left carpal tunnel release . Patient understands and agrees with current plan. All questions answered. Patient elects to proceed with surgical intervention consent was reviewed and signed with patient in preoperative holding area. Procedure: Patient seen and evaluated in the preoperative holding area. Consent was reviewed and signed with patient. Correct extremity was marked. Patient was seen evaluated by the anesthesia department once cleared for surgery was brought back to the operative suite. Patient was kept on [facility] in supine position all bony prominences were well-padded patient properly secured to the bed. Left upper extremity was then placed onto an armboard. A nonsterile tourniquet was applied to the left upper arm. Patient underwent anesthesia per the anesthesia department. Patient's left upper extremity was then prepped and draped in standard orthopedic fashion. Final timeout performed. Patient received appropriate preoperative antibiotics. Under sterile aseptic technique patient received local anesthesia over the preplanned carpal tunnel incision site. Esmarch was used to exsanguinate the left upper extremity and tourniquet was insufflated to 250 mmHg. A standard mini open left carpal tunnel incision was made. Starting distally at Wu's cardinal line in line with the fourth ray extending proximally distal to the wrist crease centered over the carpal tunnel. Sharp scalpel incision was made through skin and subcutaneous tissue. Self-retaining retractor was placed and the palmar fascia was identified. This was then split longitudinally and direct visualization of the transverse carpal ligament was then made. I then utilizing scalpel feathered through the transverse carpal ligament until I entered the floor of the transverse carpal tunnel ligament into the carpal tunnel. Next I switched to dissection scissors and completed my release of the transverse carpal ligament distally with care to protect the recurrent motor branch. I completely released into the palmar fat and until no entrapment was noted distally. Care was made to protect the superficial palmar arch during my distal dissection. Next, nasal speculum placed proximally for retraction of soft tissue on top of the Transverse carpal ligament. Next the contents of the carpal tunnel where protected and and subsequently utilizing dissection scissors under loupe magnification completely released the transverse carpal ligament proximally into the antebrachial fascia. Care was made to protect the palmar cutaneous branch by keeping my scissors curved ulnarly. Once completely released, I then placed my Nesbit and had appropriate decompression of the carpal tunnel proximally as well as distally. I then inspected the contents of the carpal tunnel which showed an hourglass shape of the median nerve showing its compression. No masses were noted. Tendons appeared healthy. Wound was then thoroughly irrigated. Tourniquet deflated. Hemostasis satisfactory with bipolar electrocautery. I then closed the incision with interrupted nylon stitches. Xeroform 4 x 4's and a bulky soft dressing was applied to the left upper extremity. Patient was then awakened from anesthesia and taken to PACU in stable condition. Patient tolerated procedure without complications. Disposition: Patient taken to PACU in stable condition recovering well. Dressing clean dry and intact. Patient will receive appropriate discharge instructions as well as pain medication postoperatively. Patient to follow-up with me in the office in 2 weeks. They understand they may be weightbearing as tolerated to the left hand. Patient should keep incision clean dry and intact. Patient understands if any questions or concerns may contact the office.
--- NOTE | 2025-06-09 08:40 | ANE.PACU2 ---
Inpatient post-anesthesia follow up: Airway intact: Yes Vital signs: Temperature 98.1 F Pulse Rate 84 Respiratory Rate 18 Blood Pressure 136/90 Pulse Oximetry 98 Oxygen Delivery Me thod Room Air Oxygen Flow Rate Fraction of Inspir ed Oxygen Hydration adequate: Yes Nausea and vomiting: No Pain level: 1 Mental status: Baseline
== END 2025-06-09 08:40 | disposition home or self-care (01) ==
PROVIDERS: PCP Family Medicine; Visit Provider Student in an Organized Health Care Education/Training Program
PROC: (CPT 64721; principal; 2025-06-09 07:00)
DX: G56.02 Carpal tunnel syndrome, left upper limb (principal); M06.9 Rheumatoid arthritis, unspecified; G62.9 Polyneuropathy, unspecified; F41.9 Anxiety disorder, unspecified; F17.210 Nicotine dependence, cigarettes, uncomplicated
CPT/HCPCS: 64721; J0131; J0690; J1885; J2250; J2371; J2704; J2795; J3010; J7030; J9999

== ENCOUNTER → 2025-06-24 09:13 | Outpatient (BNVA) | payer MEDICAID, SELFPAY | PROVIDERS: PCP Family Medicine; Visit Provider Physician Assistant | DX: Z98.890 Other specified postprocedural states (principal) | CPT/HCPCS: 99024 ==

== ENCOUNTER 2025-07-31 07:42 | Emergency (ER) | payer MEDICAID, SELFPAY ==
[2025-07-31] VITALS (13 sets, daily range): BP systolic 113–160; BP diastolic 85–104; PULSE 86–111; RESP 16–18; TEMP 36.7; O2SAT 93–100
--- NOTE | 2025-07-31 07:44 | CTR_ITS ---
PROCEDURE INFORMATION: Exam: CT Abdomen And Pelvis With Contrast Exam date and time: 07/31/2025 8:09 AM Age: 60 years old Clinical indication: Abdominal pain; Prior surgery; Surgery date: 6+ months; Surgery type: Small bowel; Additional info: Abd pain TECHNIQUE: Imaging protocol: Computed tomography of the abdomen and pelvis with contrast. Radiation optimization: All CT scans at this facility use at least one of these dose optimization techniques: automated exposure control; mA and/or kV adjustment per patient size (includes targeted exams where dose is matched to clinical indication); or iterative reconstruction. Contrast material: OMNI 350; Contrast volume: 100 ml; Contrast route: INTRAVENOUS (IV); COMPARISON: CR XR chest 1V portable [id number] 06/20/2022 3:53 PM RADIATION DOSE METRICS: Total DLP (mGy-cm): 388.1 FINDINGS: Liver: Too small to characterize right hepatic 3 mm hypodensity. Gallbladder and biliary ducts: Normal. No calcified stones. No ductal dilation. Pancreas: Normal. No ductal dilation. Spleen: Normal. No splenomegaly. Adrenal glands: Normal. No mass. Kidneys and ureters: Bilateral renal 2 mm calculi. Stomach and bowel: Diffuse colonic stool material. Postsurgical changes involving distal ileal loop are seen. The small bowel loops proximal to the anastomosis are dilated. Appendix: Appendix is not visualized. Intraperitoneal space: Unremarkable. No free air. No significant fluid collection. 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 Mild calcified atherosclerotic changes are seen throughout the abdominal aorta. Lymph nodes: Unremarkable. No enlarged lymph nodes. Urinary bladder: Unremarkable as visualized. Reproductive: Nonspecific calcifications in the prostate. The prostate appears to protrude into the bladder base. Bones/joints: Unremarkable. No acute fracture. Soft tissues: Unremarkable. CT/CT abdomen pelvis w con* [id number] IMPRESSION: 1. Postsurgical changes involving distal ileal loop are seen. The small bowel loops proximal to the anastomosis are dilated. Findings suggest high-grade small bowel obstruction. 2. 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 3. Bilateral renal 2 mm calculi. 4. The prostate appears to protrude into the bladder base. Correlation with the patient's PSA level is advised. Prostate MRI may be helpful for further evaluation. 5. Diffuse colonic stool material. Clinical correlation to exclude constipation is advised.
--- NOTE | 2025-07-31 07:46 | W.ED.ABDPA2 ---
HPI - Abdominal Pain General: Chief Complaint: Abdominal Pain Stated Complaint: abd pain Time Seen by Provider: 07/31/25 07:44 Source: patient and EMS Mode of arrival: EMS Limitations: no limitations History of Present Illness: 60-year-old male states he has been having abdominal pain since morning. States its diffuse in nature rates it a 7 out of 10. He denies any vomiting or diarrhea states his abdomen also feels distended states he has had a bowel resection in the past. Related Data Previous Rx's ?Medication ?Instructions ?Recorded bilateral wrist braces #1 ea 01/19/25 ibuprofen 600 mg tablet See Rx Instructions .Route 02/08/25 .COMPLEX #75 tabs tramadol 50 mg tablet 50 mg PO Q6H PRN pain #20 tabs 06/09/25 diazepam 5 mg tablet 5 mg PO TID PRN anxiety 30 days 07/11/25 #65 tabs hydrocodone 7.5 mg-acetaminophen 1 tab PO Q8H PRN pain 30 days #80 07/18/25 325 mg tablet tabs Allergies Allergy/AdvReac Type Severity Reaction Status Date / Time codeine Allergy nausea Verified 06/24/25 09:24 [facility] ED PFSH: Medical History Calcium pyrophosphate deposition disease (CPPD) Seronegative rheumatoid arthritis of both hands Immunization counseling High risk medication use Inflammatory arthritis Peripheral neuropathy Generalized anxiety disorder Bilateral hand pain Cervical disc disorder with radiculopathy, cervicothoracic region Surgical History History of fusion of cervical spine C2-C3 ACDFF, [facility], 03/09/2001; C2-C6 posterior fusion/fixation, [facility], 04/01/2014 History of carpal tunnel release Open release of the median nerve at the right wrist, 08/23/2019, [facility] Family History Father Stroke Denies family history of Rheumatoid arthritis Diabetes Lupus Lung disease Cancer Hypertension Social History Smoking and tobacco/nicotine status: current every day tobacco/nicotine user cigarettes [ Other cigarette details: using chantix to try to quit at this time] and cigars Quit status (tobacco/nicotine): has tried quititng Alcohol intake: current Alcohol intake frequency: few times a week Substance/Drug Use: never Household members: none Marital status: Current occupational status: disabled Physical Exam Const: COMMON NORMALS: no acute distress, patient oriented x3 and healthy appearing HENMT: COMMON NORMALS: normocephalic and atraumatic HEAD & SCALP: normocephalic and atraumatic Eye: COMMON NORMALS: Equal, round and reactive pupils present PUPIL: Yes Equal, round and reactive pupils present Neck/C-Spine: COMMON NORMALS: full ROM and supple Chest: COMMONS NORMALS: normal inspection of the chest and normal palpation of entire chest wall Resp: COMMON NORMALS: normal respiratory effort, No retractions, No use of accessory muscles and clear to auscultation bilaterally AUSCULTATION: clear to auscultation bilaterally Cardio: COMMON NORMALS: regular rate, regular rhythm and No murmurs present (Cardio) RATE: regular rate RHYTHM: regular rhythm GI: COMMON NORMALS: Soft to palpation and no masses PALPATION: Yes Soft to palpation OTHER: Abdominal distention along with mild tenderness on exam Extremity: COMMON NORMALS: normal to inspection and full ROM Neuro: COMMON NORMALS: patient oriented x3, moves all extremities and no focal motor deficits Psych: COMMON NORMALS: mental status grossly normal, Normal thought process present and cooperative THOUGHT PROCESS: Normal thought process present Skin: COMMON NORMALS: no rashes or lesions noted and no wounds GENERAL SKIN EXAM: no rashes or lesions noted Course Vital Signs: Vital signs: Vital Signs Temperature 98.1 F 07/31/25 07:43 Pulse Rate 93 07/31/25 07:43 Respiratory Rate 16 07/31/25 07:43 Blood Pressure 142/94 07/31/25 07:43 Pulse Oximetry 97 07/31/25 07:43 Oxygen Delivery Me thod Room Air 07/31/25 07:43 MDM - Abdominal Pain Medical Decision Making Patient presents here with abdominal pain differential did include diverticulitis along with pancreatitis, appendicitis. CT scan showed no findings of these. CT scan did show a small bowel obstruction with transition point at his anastomosis from previous small bowel resection. Patient's white count here is normal electrolytes are normal no fever. Will place an NG tube at this time. I spoke to patient informed of the small bowel obstruction also informed him we are going to transfer him to [facility]. After transfer due to no surgery coverage currently. He understands agrees to plan Lab Data I reviewed the patient's lab results. 07/31/25 07:55 07/31/25 07:55 Labs/Radiology: Radiology Impressions Abdomen/Pelvis CT 07/31/25 07:44 IMPRESSION: 1. Postsurgical changes involving distal ileal loop are seen. The small bowel loops proximal to the anastomosis are dilated. Findings suggest high-grade small bowel obstruction. 2. 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 3. Bilateral renal 2 mm calculi. 4. The prostate appears to protrude into the bladder base. Correlation with the patient's PSA level is advised. Prostate MRI may be helpful for further evaluation. 5. Diffuse colonic stool material. Clinical correlation to exclude constipation is advised. ADDENDUM: 07/31/25 0841 COMMENT: THIS REPORT CONTAINS FINDINGS THAT MAY BE CRITICAL TO PATIENT CARE. The exam findings were verbally communicated by me to KAREN YU via telephone conference at 8:39 AM CDT on 07/31/2025. The findings were acknowledged and understood. Laboratory Results WBC 8.78 10^3/uL (3.29-11.43) 07/31/25 07:55 RBC 5.01 10^6/uL (3.85-5.65) 07/31/25 07:55 Hgb 15.50 g/dL (11.27-16.99) 07/31/25 07:55 Hct 47.1 % (37-53) 07/31/25 07:55 MCV 94.0 fl (82-101) 07/31/25 07:55 MCH 30.9 pg (27-33) 07/31/25 07:55 MCHC 32.9 g/dL (30-55) 07/31/25 07:55 RDW 12.6 % (12.1-15.1) 07/31/25 07:55 Plt Count 280 10^3/cmm (157-399) 07/31/25 07:55 MPV 8.8 fL (7.4-10.4) 07/31/25 07:55 Neut % (Auto) 68.2 % 07/31/25 07:55 Lymph % (Auto) 18.9 % 07/31/25 07:55 Grant % (Auto) 10.4 % 07/31/25 07:55 Eos % (Auto) 1.4 % 07/31/25 07:55 Baso % (Auto) 0.5 % 07/31/25 07:55 Neut # (Auto) 6.00 10^3/uL (1.8-7.7) 07/31/25 07:55 Lymph # (Auto) 1.7 10^3/uL (0.8-4.8) 07/31/25 07:55 Grant # (Auto) 0.9 10^3/uL (0.2-0.9) 07/31/25 07:55 Eos # (Auto) 0.1 10^3/uL (0.0-0.8) 07/31/25 07:55 Baso # (Auto) 0.0 10^3/uL (0.0-0.1) 07/31/25 07:55 Nucleated RBC % (auto) 0 % 07/31/25 07:55 Nucleated RBCs # 0.0 /100WBC 07/31/25 07:55 Sodium 138 mmol/L (136-145) 07/31/25 07:55 Potassium 5.1 mmol/L (3.5-5.1) 07/31/25 07:55 Chloride 101 mmol/L (98-107) 07/31/25 07:55 Carbon Dioxide 26 mmol/L (22-29) 07/31/25 07:55 Anion Gap 16.1 (5-19) 07/31/25 07:55 BUN 11 mg/dL (6-20) 07/31/25 07:55 Creatinine 0.7 mg/dL (0.7-1.2) 07/31/25 07:55 GFR Calculation 115.4 mL/min (90-130) 07/31/25 07:55 Glucose 104 mg/dL (65-115) 07/31/25 07:55 Calculated Osmolality 286 mOsm/kg (285-295) 07/31/25 07:55 Calcium 9.7 mg/dL (8.5-10.5) 07/31/25 07:55 Total Bilirubin 0.3 mg/dL (0.15-1.2) 07/31/25 07:55 AST 34 U/L (0-40) 07/31/25 07:55 ALT 44 U/L (0-41) H 07/31/25 07:55 Alkaline Phosphatase 96 U/L (40-130) 07/31/25 07:55 Total Protein 7.1 g/dL (6.6-8.7) 07/31/25 07:55 Albumin 4.5 g/dL (3.5-5.2) 07/31/25 07:55 Globulin 2.6 g/dL (1.3-4.6) 07/31/25 07:55 Lipase 37 U/L (13-60) 07/31/25 07:55 All radiology interpretation(s) finalized by discharge Discharge Plan Discharge Patient Disposition: Admitted As Inpatient Clinical Impression: Small bowel obstruction Condition: Stable Coding Level of Care Code ED Mechanical Spreader Operator for Chris Childs
[2025-07-31 07:59] LABS: Hematocrit 47.1 % (37-53); Hemoglobin 15.50 g/dL (11.27-16.99); Mean Corpuscular HGB Conc 32.9 g/dL (30-55); Mean Corpuscular Hemoglobin 30.9 pg (27-33); Mean Corpuscular Volume 94.0 fl (82-101); Nucleated Red Blood Cells % 0 %; Platelet Count 280 10^3/cmm (157-399); Red Blood Count 5.01 10^6/uL (3.85-5.65); White Blood Count 8.78 10^3/uL (3.29-11.43)
[2025-07-31] MEDS: ondansetron 2 mg/ML SDV 2 mL 4 MG IVP (07:59)
[2025-07-31] MEDS: morphine 4 mg/mL SDV 1 mL IVP ×2 (08:00→10:41)
[2025-07-31 08:16] LABS: Alanine Aminotransferase 44 U/L (0-41); Albumin Level 4.5 g/dL (3.5-5.2); Alkaline Phosphatase 96 U/L (40-130); Anion Gap 16.1 (5-19); Aspartate Amino Transferase 34 U/L (0-40); Blood Urea Nitrogen 11 mg/dL (6-20); Calcium 9.7 mg/dL (8.5-10.5); Carbon Dioxide 26 mmol/L (22-29); Chloride 101 mmol/L (98-107); Creatinine Clr Calc Pharmacy 103.1046; Globulin 2.6 g/dL (1.3-4.6); Glucose 104 mg/dL (65-115); Lipase 37 U/L (13-60); Osmolality Calculated 286 mOsm/kg (285-295); Potassium 5.1 mmol/L (3.5-5.1); Sodium 138 mmol/L (136-145); Total Protein 7.1 g/dL (6.6-8.7)
[2025-07-31] MEDS: iohexol 350 mg/mL 500 mL Btl (per mL) IV (08:18)
[2025-07-31] MEDS: LORazepam 2 mg/mL INJ 1 mL 1 MG IVP ×2 (10:01→10:41)
[2025-07-31 10:08] LABS: Lactic Sepsis W/Reflex 1.0 mmol/L (0.5-2.2)
--- NOTE | 2025-07-31 10:25 | PC.NURSE ---
this RN attempted NG tube placement x1 in the right nare and x2 in the left nare. pt given Ativan prior to attempt insertion. this RN is unable to achieve success due to patients intolerance to the tube. when tube is inserted patient jumps and rolls around in the bed. RN educated patient and family on the need for NG tube this RN informed provider of interaction, provider ordered more medication so another attempt could be made.
--- NOTE | 2025-07-31 11:04 | PC.NURSE ---
this RN gave meds and attempted to insert NG tube again in left nare, patient was still unable to tolerate NG tube insertion. Dr. Fortune notified.
--- NOTE | 2025-07-31 11:44 | PC.NURSE ---
TRANSFER REPORT: called to [facility] [id number]; report given to GABRIELE Horne.
== END 2025-07-31 13:45 | disposition short-term general hospital (02) ==
PROVIDERS: Emergency Provider Emergency Medicine; PCP Family Medicine
DX: K56.609 Unspecified intestinal obstruction, unspecified as to partial versus complete obstruction (principal); F17.210 Nicotine dependence, cigarettes, uncomplicated
CPT/HCPCS: 36415; 74177; 80053; 83605; 83690; 85025; 96374; 96375; 96376; 99285; J2060; J2270; J2405

== ENCOUNTER → 2025-08-25 10:31 | Outpatient (BNVA) | payer MEDICAID, SELFPAY | PROVIDERS: PCP Family Medicine; Visit Provider Specialist | DX: G24.3 Spasmodic torticollis (principal) | CPT/HCPCS: 64616; J0585; J9999 ==